=== PATIENT | female | born 1960 | race Caucasian/White ===

== ENCOUNTER 2017-10-13 16:32 | Inpatient (IN) | payer MEDICARE ==
[~2017-10-13] VITALS: Ht 154.9 cm; Wt 58.2 kg
[~2017-10-13 16:32] MED LIST: BENZ2TAB10 PO; DSS100 PO; HALO10 PO; MIRT30 PO
[2017-10-13 20:34] VITALS: BP 143/87
[2017-10-13] MEDS ORDERED: LORazepam 2 MG TABLET PO PRN (20:45)
[2017-10-13] MEDS ORDERED: ZOLPIDEM TARTRATE 10 MG TABLET PO PRN (20:45)
[2017-10-13] MEDS ORDERED: HALOPERIDOL 5 MG TABLET PO PRN (21:00)
[2017-10-13 22:33] VITALS: BP 141/93
[2017-10-13] MEDS ORDERED: INFLUENZA VIRUS VACCINE QVS 2017-18 (3YR+)/PF 60 MCG/0.5 ML SYRINGE IM ONE (22:45)
[2017-10-13] MEDS: ZOLPIDEM TARTRATE 10 MG TABLET PO PRN (23:00)
[2017-10-14 00:40] VITALS: BP 125/76
[2017-10-14 08:20] VITALS: BP 126/77
[2017-10-14] MEDS: NICOTINE 14 MG/24 HOUR PATCH TD SCH (08:22)
[2017-10-14 08:30] LABS: BASOPHILS % (AUTO) 0.7 % (0.0-2.0); EOSINOPHILS % (AUTO) 1.7 % (1.0-6.0); HEMATOCRIT 38.7 % (36-46); HEMOGLOBIN 13.3 g/dL (12.0-16.0); LYMPHOCYTES # (AUTO) 2.3 K/uL (1.0-4.8); LYMPHOCYTES % (AUTO) 22.5 % (22.0-44.0); MEAN CORPUSCULAR HEMOGLOBIN 30.7 pg (26.0-34.0); MEAN CORPUSCULAR HGB CONC 34.4 G/dL (31.0-37.0); MEAN CORPUSCULAR VOLUME 89 fL (80-100); MONOCYTES # (AUTO) 0.8 K/uL (0.1-1.0); MONOCYTES % (AUTO) 8.1 % (2.0-9.0); NEUTROPHILS # (AUTO) 6.7 K/uL (1.8-7.7); PLATELET COUNT (AUTO) 311 K/uL (150-450); RED BLOOD CELL COUNT(AUTO) 4.33 MIL/uL (4.00-5.20); RED CELL DISTRIBUTION WIDTH 13.5 % (11.5-14.5)
[2017-10-14 09:12] LABS: ALANINE AMINOTRANSFERASE 28 U/L (12-78); ALBUMIN 3.5 g/dL (3.4-5.0); ANION GAP 7 mmol/L (8-16); ASPARTATE AMINOTRANSFERASE 51 U/L (15-37); BILIRUBIN,TOTAL 0.4 mg/dL (0.1-1.0); CALCIUM, TOTAL 8.8 mg/dL (8.8-10.5); CARBON DIOXIDE 29 mmol/L (22-29); CHLORIDE 97 mmol/L (98-107); CHOL/HDL RATIO 3.1 (3.9-5.7); CREATININE 0.58 mg/dL (0.60-1.30); GLOMERULAR FILTR. RATE CALC > 60 mL/min (>60); POTASSIUM 4.7 mmol/L (3.5-5.1); SODIUM SERUM 133 mmol/L (136-145); THYROID STIMULATING HORMONE 3.94 uIU/mL (0.36-3.74); UREA NITROGEN, BLOOD 6 mg/dL (7-18)
[2017-10-14 16:04] VITALS: BP 120/83
[2017-10-14 17:28] VITALS: BP 124/78
[2017-10-14] MEDS: IBUPROFEN 400 MG TABLET PO PRN (17:28)
[2017-10-14] MEDS: DOCUSATE SODIUM 100 MG CAPSULE PO SCH (20:21)
[2017-10-14] MEDS: MIRTAZAPINE 15 MG TABLET PO SCH (20:21)
[2017-10-14] MEDS ORDERED: RisperiDONE 0.5 MG TABLET PO SCH (21:00)
[2017-10-15 06:06] VITALS: BP 121/79
[2017-10-15 08:20] VITALS: BP 105/61
[2017-10-15] MEDS: NICOTINE 14 MG/24 HOUR PATCH TD SCH (08:26)
[2017-10-15 09:25] LABS: APPEARANCE,URINE CLEAR (CLEAR); GLUCOSE, URINE (UA) NEGATIVE (NEGATIVE); KETONES,URINE NEGATIVE (NEGATIVE); LEUKOCYTE ESTERASE ,URINE TRACE (NEGATIVE); OCCULT BLOOD,URINE NEGATIVE (NEGATIVE); PROTEIN,URINE NEGATIVE (NEGATIVE)
[2017-10-15 09:29] LABS: ADD UA MICROSCOPIC YES
[2017-10-15 09:44] LABS: RBC,URINE None Seen /HPF (0-2); SQUAMOUS EPITHELIAL CELL,UR Rare /LPF (None Seen); WBC,URINE 0-2 /HPF (0-5)
[2017-10-15 16:12] VITALS: BP 117/80
[2017-10-15] MEDS: IBUPROFEN 400 MG TABLET PO PRN (16:21)
[2017-10-15] MEDS: DOCUSATE SODIUM 100 MG CAPSULE PO SCH (20:27)
[2017-10-15] MEDS: MIRTAZAPINE 15 MG TABLET PO SCH (20:27)
[2017-10-15] MEDS ORDERED: RisperiDONE 1 MG TABLET PO SCH (21:00)
[2017-10-15] MEDS: ZOLPIDEM TARTRATE 10 MG TABLET PO PRN (22:10)
[2017-10-16 02:08] VITALS: BP 109/67
[2017-10-16 08:30] LABS: ALANINE AMINOTRANSFERASE 34 U/L (12-78); ALBUMIN 3.1 g/dL (3.4-5.0); ANION GAP 8 mmol/L (8-16); ASPARTATE AMINOTRANSFERASE 36 U/L (15-37); BILIRUBIN,TOTAL 0.3 mg/dL (0.1-1.0); CALCIUM, TOTAL 8.5 mg/dL (8.8-10.5); CARBON DIOXIDE 27 mmol/L (22-29); CHLORIDE 101 mmol/L (98-107); CREATININE 0.63 mg/dL (0.60-1.30); GLOMERULAR FILTR. RATE CALC > 60 mL/min (>60); POTASSIUM 4.2 mmol/L (3.5-5.1); SODIUM SERUM 136 mmol/L (136-145); TOTAL PROTEIN, SERUM 5.8 g/dL (6.4-8.2); UREA NITROGEN, BLOOD 14 mg/dL (7-18)
[2017-10-16] MEDS: NICOTINE 14 MG/24 HOUR PATCH TD SCH (08:42)
[2017-10-16 08:43] VITALS: BP 101/60
[2017-10-16] MEDS ORDERED: MAG HYDROX/AL HYDROX/SIMETH ES 30 ML SUSPENSION UDCUP PO PRN (11:45)
[2017-10-16] MEDS ORDERED: HydrOXYzine PAMOATE 50 MG CAPSULE PO PRN (11:45)
[2017-10-16] MEDS ORDERED: LOPERAMIDE HCL 2 MG CAPSULE PO PRN (11:45)
[2017-10-16] MEDS ORDERED: PROMETHAZINE HCL 25 MG TABLET PO PRN (11:45)
[2017-10-16] MEDS ORDERED: ACETAMINOPHEN 325 MG TABLET PO PRN (11:45)
[2017-10-16] MEDS ORDERED: GuaiFENesin/D-METHORPHAN [SUGAR-FREE] 200-20MG/10 ML SYRUP UDCUP PO PRN (11:45)
[2017-10-16] MEDS ORDERED: RisperiDONE 1 MG TABLET PO PRN (14:15)
[2017-10-16 16:02] VITALS: BP 110/84
[2017-10-16] MEDS ORDERED: BENZTROPINE MESYLATE 2 MG TABLET PO SCH (17:00)
[2017-10-16] MEDS: THIAMINE HCL 100 MG TABLET PO SCH (17:31)
[2017-10-16] MEDS: DOCUSATE SODIUM 100 MG CAPSULE PO SCH (20:34)
[2017-10-16] MEDS: MIRTAZAPINE 30 MG TABLET PO SCH (20:34)
[2017-10-16] MEDS ORDERED: HALOPERIDOL 10 MG TABLET PO SCH (21:00)
[2017-10-16] MEDS ORDERED: RisperiDONE 3 MG TABLET PO SCH (21:00)
[2017-10-17 00:01] VITALS: BP 116/87
[2017-10-17] MEDS: ZOLPIDEM TARTRATE 10 MG TABLET PO PRN (00:03)
[2017-10-17 08:18] VITALS: BP 113/71
[2017-10-17] MEDS: THIAMINE HCL 100 MG TABLET PO SCH ×2 (08:33→16:34)
[2017-10-17] MEDS: FOLIC ACID 1 MG TABLET PO SCH (08:33)
[2017-10-17] MEDS: MULTIVITAMINS WITH MINERALS, THERAPEUTIC TABLET PO SCH (08:33)
[2017-10-17] MEDS: NICOTINE 14 MG/24 HOUR PATCH TD SCH (08:34)
[2017-10-17 16:08] VITALS: BP 103/63
[2017-10-17] MEDS: DOCUSATE SODIUM 100 MG CAPSULE PO SCH (20:30)
[2017-10-17] MEDS: MIRTAZAPINE 30 MG TABLET PO SCH (20:31)
[2017-10-17] MEDS ORDERED: RisperiDONE 4 MG TABLET PO SCH (21:00)
[2017-10-18 00:33] VITALS: BP 113/83
[2017-10-18] MEDS: ZOLPIDEM TARTRATE 10 MG TABLET PO PRN (00:43)
[2017-10-18 08:15] VITALS: BP 100/62
[2017-10-18] MEDS: THIAMINE HCL 100 MG TABLET PO SCH ×2 (08:18→16:22)
[2017-10-18] MEDS: FOLIC ACID 1 MG TABLET PO SCH (08:18)
[2017-10-18] MEDS: MULTIVITAMINS WITH MINERALS, THERAPEUTIC TABLET PO SCH (08:18)
[2017-10-18] MEDS: NICOTINE 14 MG/24 HOUR PATCH TD SCH (08:19)
[2017-10-18 16:04] VITALS: BP 102/62
[2017-10-18] MEDS: MIRTAZAPINE 30 MG TABLET PO SCH (20:04)
[2017-10-18] MEDS: DOCUSATE SODIUM 100 MG CAPSULE PO SCH (20:04)
[2017-10-18] MEDS: RisperiDONE 3 MG TABLET PO SCH (20:04)
[2017-10-19 03:25] VITALS: BP 117/70
[2017-10-19] MEDS: LORazepam 1 MG TABLET PO PRN (03:27)
[2017-10-19 08:27] VITALS: BP 105/67
[2017-10-19] MEDS: FOLIC ACID 1 MG TABLET PO SCH (08:40)
[2017-10-19] MEDS: MULTIVITAMINS WITH MINERALS, THERAPEUTIC TABLET PO SCH (08:40)
[2017-10-19] MEDS: NICOTINE 14 MG/24 HOUR PATCH TD SCH (08:40)
[2017-10-19] MEDS: THIAMINE HCL 100 MG TABLET PO SCH ×2 (08:40→16:37)
[2017-10-19 13:17] VITALS: BP 112/70
[2017-10-19] MEDS: ACETAMINOPHEN 325 MG TABLET PO PRN (13:17)
[2017-10-19 16:23] VITALS: BP 107/74
[2017-10-19] MEDS: DOCUSATE SODIUM 100 MG CAPSULE PO SCH (20:58)
[2017-10-19] MEDS: RisperiDONE 3 MG TABLET PO SCH (20:58)
[2017-10-19] MEDS: MIRTAZAPINE 30 MG TABLET PO SCH (20:58)
[2017-10-19] MEDS: ZOLPIDEM TARTRATE 10 MG TABLET PO PRN (22:57)
[2017-10-20 06:33] VITALS: BP 110/75
[2017-10-20 08:00] VITALS: BP 123/87
[2017-10-20] MEDS: MULTIVITAMINS WITH MINERALS, THERAPEUTIC TABLET PO SCH (08:42)
[2017-10-20] MEDS: FOLIC ACID 1 MG TABLET PO SCH (08:42)
[2017-10-20] MEDS: THIAMINE HCL 100 MG TABLET PO SCH ×2 (08:42→16:42)
[2017-10-20] MEDS: NICOTINE 14 MG/24 HOUR PATCH TD SCH (08:43)
[2017-10-20 16:04] VITALS: BP 106/71
[2017-10-20] MEDS: RisperiDONE 3 MG TABLET PO SCH (20:44)
[2017-10-20] MEDS: MIRTAZAPINE 30 MG TABLET PO SCH (20:44)
[2017-10-20] MEDS: DOCUSATE SODIUM 100 MG CAPSULE PO SCH (20:44)
[2017-10-21 06:33] VITALS: BP 101/79
[2017-10-21] MEDS: THIAMINE HCL 100 MG TABLET PO SCH ×2 (08:35→16:58)
[2017-10-21] MEDS: MULTIVITAMINS WITH MINERALS, THERAPEUTIC TABLET PO SCH (08:35)
[2017-10-21] MEDS: FOLIC ACID 1 MG TABLET PO SCH (08:35)
[2017-10-21] MEDS: NICOTINE 14 MG/24 HOUR PATCH TD SCH (08:36)
[2017-10-21 08:37] VITALS: BP 106/66
[2017-10-21 16:37] VITALS: BP 104/69
[2017-10-21] MEDS: RisperiDONE 3 MG TABLET PO SCH (21:03)
[2017-10-21] MEDS: MIRTAZAPINE 30 MG TABLET PO SCH (21:03)
[2017-10-21] MEDS: DOCUSATE SODIUM 100 MG CAPSULE PO SCH (21:03)
[2017-10-21] MEDS: ZOLPIDEM TARTRATE 10 MG TABLET PO PRN (22:34)
[2017-10-22 06:39] VITALS: BP 111/84
[2017-10-22 08:05] VITALS: BP 100/71
[2017-10-22] MEDS: THIAMINE HCL 100 MG TABLET PO SCH ×2 (08:36→17:05)
[2017-10-22] MEDS: FOLIC ACID 1 MG TABLET PO SCH (08:37)
[2017-10-22] MEDS: MULTIVITAMINS WITH MINERALS, THERAPEUTIC TABLET PO SCH (08:37)
[2017-10-22] MEDS: NICOTINE 14 MG/24 HOUR PATCH TD SCH (08:37)
[2017-10-22 16:05] VITALS: BP 114/82
[2017-10-22] MEDS: DOCUSATE SODIUM 100 MG CAPSULE PO SCH (21:03)
[2017-10-22] MEDS: MIRTAZAPINE 30 MG TABLET PO SCH (21:03)
[2017-10-22] MEDS: RisperiDONE 3 MG TABLET PO SCH (21:03)
[2017-10-22] MEDS: ZOLPIDEM TARTRATE 10 MG TABLET PO PRN (21:19)
[2017-10-23 06:16] VITALS: BP 118/76
[2017-10-23 08:22] VITALS: BP 113/75
[2017-10-23] MEDS: THIAMINE HCL 100 MG TABLET PO SCH ×2 (08:51→16:29)
[2017-10-23] MEDS: FOLIC ACID 1 MG TABLET PO SCH (08:52)
[2017-10-23] MEDS: NICOTINE 14 MG/24 HOUR PATCH TD SCH (08:52)
[2017-10-23] MEDS: MULTIVITAMINS WITH MINERALS, THERAPEUTIC TABLET PO SCH (08:52)
[2017-10-23 16:01] VITALS: BP 113/68
[2017-10-23] MEDS ORDERED: MIRT30 PO (16:16)
[2017-10-23] MEDS ORDERED: RISP3 PO (16:16)
[2017-10-23] MEDS: MAGNESIUM HYDROXIDE SUSPENSION 30 ML UDCUP PO PRN (17:50)
[2017-10-23] MEDS: DiphenhydrAMINE HCL 25 MG CAPSULE PO SCH (20:26)
[2017-10-23] MEDS: RisperiDONE 3 MG TABLET PO SCH (20:26)
[2017-10-23] MEDS: MIRTAZAPINE 30 MG TABLET PO SCH (20:27)
[2017-10-23] MEDS: DOCUSATE SODIUM 100 MG CAPSULE PO SCH (20:27)
[2017-10-23] MEDS: ZOLPIDEM TARTRATE 10 MG TABLET PO PRN (21:31)
[2017-10-24 05:53] VITALS: BP 107/68
[2017-10-24 08:25] VITALS: BP 100/60
[2017-10-24] MEDS: NICOTINE 14 MG/24 HOUR PATCH TD SCH (09:04)
[2017-10-24] MEDS: MULTIVITAMINS WITH MINERALS, THERAPEUTIC TABLET PO SCH (09:04)
[2017-10-24] MEDS: THIAMINE HCL 100 MG TABLET PO SCH ×2 (09:04→16:38)
[2017-10-24] MEDS: FOLIC ACID 1 MG TABLET PO SCH (09:04)
[2017-10-24] MEDS: MAGNESIUM HYDROXIDE SUSPENSION 30 ML UDCUP PO PRN ×2 (09:34→18:38)
[2017-10-24] MEDS ORDERED: RISP3 PO (10:24)
[2017-10-24] MEDS ORDERED: OLANZapine 5 MG RAPDIS TABLET PO PRN (13:00)
[2017-10-24 16:01] VITALS: BP 104/69
[2017-10-24] MEDS: DiphenhydrAMINE HCL 25 MG CAPSULE PO SCH (20:34)
[2017-10-24] MEDS: MIRTAZAPINE 30 MG TABLET PO SCH (20:35)
[2017-10-24] MEDS: DOCUSATE SODIUM 100 MG CAPSULE PO SCH (20:35)
[2017-10-24] MEDS: OLANZapine 5 MG RAPDIS TABLET PO SCH (20:35)
[2017-10-24] MEDS: ZOLPIDEM TARTRATE 10 MG TABLET PO PRN (21:13)
[2017-10-25] MEDS: LORazepam 1 MG TABLET PO PRN (00:57)
[2017-10-25 01:03] VITALS: BP 109/72
[2017-10-25 08:54] VITALS: BP 107/69
[2017-10-25] MEDS: FOLIC ACID 1 MG TABLET PO SCH (09:05)
[2017-10-25] MEDS: MULTIVITAMINS WITH MINERALS, THERAPEUTIC TABLET PO SCH (09:05)
[2017-10-25] MEDS: THIAMINE HCL 100 MG TABLET PO SCH ×2 (09:05→16:16)
[2017-10-25] MEDS: NICOTINE 14 MG/24 HOUR PATCH TD SCH (09:06)
[2017-10-25 16:05] VITALS: BP 102/63
[2017-10-25] MEDS: DiphenhydrAMINE HCL 25 MG CAPSULE PO SCH (20:21)
[2017-10-25] MEDS: OLANZapine 5 MG RAPDIS TABLET PO SCH (20:21)
[2017-10-25] MEDS: MIRTAZAPINE 30 MG TABLET PO SCH (20:21)
[2017-10-25] MEDS: DOCUSATE SODIUM 100 MG CAPSULE PO SCH (20:22)
[2017-10-25] MEDS: ZOLPIDEM TARTRATE 10 MG TABLET PO PRN (20:22)
[2017-10-26 06:26] VITALS: BP 108/74
[2017-10-26] MEDS: MULTIVITAMINS WITH MINERALS, THERAPEUTIC TABLET PO SCH (08:38)
[2017-10-26] MEDS: FOLIC ACID 1 MG TABLET PO SCH (08:38)
[2017-10-26] MEDS: THIAMINE HCL 100 MG TABLET PO SCH (08:38)
[2017-10-26] MEDS: NICOTINE 14 MG/24 HOUR PATCH TD SCH (08:39)
[2017-10-26 09:00] VITALS: BP 112/72
[2017-10-26 19:03] VITALS: BP 109/77
[2017-10-26] MEDS: DOCUSATE SODIUM 100 MG CAPSULE PO SCH (21:06)
[2017-10-26] MEDS: ZOLPIDEM TARTRATE 10 MG TABLET PO PRN (21:07)
[2017-10-26] MEDS: OLANZapine 5 MG RAPDIS TABLET PO SCH (21:07)
[2017-10-26] MEDS: MIRTAZAPINE 30 MG TABLET PO SCH (21:07)
[2017-10-26] MEDS: DiphenhydrAMINE HCL 25 MG CAPSULE PO SCH (21:07)
[2017-10-27] MEDS: MULTIVITAMINS WITH MINERALS, THERAPEUTIC TABLET PO SCH (08:05)
[2017-10-27] MEDS: NICOTINE 14 MG/24 HOUR PATCH TD SCH (08:05)
[2017-10-27 16:20] VITALS: BP 106/61
[2017-10-27] MEDS: MIRTAZAPINE 30 MG TABLET PO SCH (20:41)
[2017-10-27] MEDS: DiphenhydrAMINE HCL 25 MG CAPSULE PO SCH (20:41)
[2017-10-27] MEDS: DOCUSATE SODIUM 100 MG CAPSULE PO SCH (20:41)
[2017-10-27] MEDS: OLANZapine 5 MG RAPDIS TABLET PO SCH (20:42)
[2017-10-27] MEDS: ZOLPIDEM TARTRATE 10 MG TABLET PO PRN (20:46)
[2017-10-28 00:01] VITALS: BP 112/71
[2017-10-28] MEDS: LORazepam 1 MG TABLET PO PRN ×2 (01:40→17:20)
[2017-10-28 09:00] VITALS: BP 101/72
[2017-10-28] MEDS: NICOTINE 14 MG/24 HOUR PATCH TD SCH (09:49)
[2017-10-28] MEDS: MULTIVITAMINS WITH MINERALS, THERAPEUTIC TABLET PO SCH (09:49)
[2017-10-28 17:16] VITALS: BP 100/65
[2017-10-28] MEDS: DOCUSATE SODIUM 100 MG CAPSULE PO SCH (20:26)
[2017-10-28] MEDS: MIRTAZAPINE 30 MG TABLET PO SCH (20:26)
[2017-10-28] MEDS: DiphenhydrAMINE HCL 25 MG CAPSULE PO SCH (20:26)
[2017-10-28] MEDS: OLANZapine 5 MG RAPDIS TABLET PO SCH (20:27)
[2017-10-28] MEDS: ZOLPIDEM TARTRATE 10 MG TABLET PO PRN (21:45)
[2017-10-29 06:00] VITALS: BP 105/68
[2017-10-29 08:30] VITALS: BP 107/64
[2017-10-29] MEDS: MULTIVITAMINS WITH MINERALS, THERAPEUTIC TABLET PO SCH (09:35)
[2017-10-29] MEDS: NICOTINE 14 MG/24 HOUR PATCH TD SCH (09:35)
[2017-10-29] MEDS: LORazepam 1 MG TABLET PO PRN (09:39)
[2017-10-29 16:32] VITALS: BP 107/62
[2017-10-29] MEDS: OLANZapine 5 MG RAPDIS TABLET PO SCH (21:02)
[2017-10-29] MEDS: MIRTAZAPINE 30 MG TABLET PO SCH (21:02)
[2017-10-29] MEDS: DOCUSATE SODIUM 100 MG CAPSULE PO SCH (21:02)
[2017-10-29] MEDS: ZOLPIDEM TARTRATE 10 MG TABLET PO PRN (21:02)
[2017-10-29] MEDS: DiphenhydrAMINE HCL 25 MG CAPSULE PO SCH (21:02)
[2017-10-30 06:34] VITALS: BP 108/65
[2017-10-30 08:40] VITALS: BP 110/67
[2017-10-30] MEDS: ACETAMINOPHEN 325 MG TABLET PO PRN (09:10)
[2017-10-30] MEDS: MULTIVITAMINS WITH MINERALS, THERAPEUTIC TABLET PO SCH (09:10)
[2017-10-30] MEDS: NICOTINE 14 MG/24 HOUR PATCH TD SCH (09:10)
[2017-10-30] MEDS: LORazepam 1 MG TABLET PO PRN ×2 (09:10→16:36)
[2017-10-30] MEDS: MAGNESIUM HYDROXIDE SUSPENSION 30 ML UDCUP PO PRN (16:50)
[2017-10-30 16:51] VITALS: BP 106/65
[2017-10-30] MEDS: DiphenhydrAMINE HCL 25 MG CAPSULE PO SCH (21:00)
[2017-10-30] MEDS: MIRTAZAPINE 30 MG TABLET PO SCH (21:00)
[2017-10-30] MEDS: OLANZapine 5 MG RAPDIS TABLET PO SCH (21:00)
[2017-10-30] MEDS: DOCUSATE SODIUM 100 MG CAPSULE PO SCH (21:00)
[2017-10-30] MEDS: ZOLPIDEM TARTRATE 10 MG TABLET PO PRN (22:30)
[2017-10-31] MEDS: NICOTINE 14 MG/24 HOUR PATCH TD SCH (08:22)
[2017-10-31] MEDS: MULTIVITAMINS WITH MINERALS, THERAPEUTIC TABLET PO SCH (08:22)
[2017-10-31 08:54] VITALS: BP 105/86
[2017-10-31] MEDS: MAGNESIUM HYDROXIDE SUSPENSION 30 ML UDCUP PO PRN ×2 (10:48→17:23)
[2017-10-31 16:35] VITALS: BP 113/74
[2017-10-31] MEDS ORDERED: OLAN10TA22 PO (16:53)
[2017-10-31] MEDS: LORazepam 1 MG TABLET PO PRN (17:23)
[2017-10-31] MEDS: ZOLPIDEM TARTRATE 10 MG TABLET PO PRN (20:51)
[2017-10-31] MEDS: DOCUSATE SODIUM 100 MG CAPSULE PO SCH (20:51)
[2017-10-31] MEDS: DiphenhydrAMINE HCL 25 MG CAPSULE PO SCH (20:51)
[2017-10-31] MEDS: MIRTAZAPINE 30 MG TABLET PO SCH (20:51)
[2017-10-31] MEDS ORDERED: OLANZapine 10 MG RAPDIS TABLET PO SCH (21:00)
[2017-11-01 02:42] VITALS: BP 127/63
[2017-11-01] MEDS: LORazepam 1 MG TABLET PO PRN (04:58)
[2017-11-01] MEDS: NICOTINE 14 MG/24 HOUR PATCH TD SCH (08:25)
[2017-11-01] MEDS: MULTIVITAMINS WITH MINERALS, THERAPEUTIC TABLET PO SCH (08:25)
[2017-11-01] MEDS ORDERED: CIPROFLOXACIN HCL 0.3% 2.5 ML OPHTHALMIC SOLUTION OD SCH (09:00)
[2017-11-01] MEDS ORDERED: DIPH25 PO (09:09)
[2017-11-01 09:10] VITALS: BP 93/60
[2017-11-01] MEDS ORDERED: CILO2.5OS OD (09:10)
[2017-11-01] MEDS: MAGNESIUM HYDROXIDE SUSPENSION 30 ML UDCUP PO PRN (12:12)
== END 2017-11-01 13:05 | disposition home or self-care (01) | DRG 885 ==
LOC: B2X 21:23 → B3A 10-25 01:20
PROVIDERS: ADMIT Psychiatry & Neurology Psychiatry; ATTEND Psychiatry & Neurology Psychiatry
DX: F25.0 Schizoaffective disorder, bipolar type (principal); E87.1 Hypo-osmolality and hyponatremia; R45.851 Suicidal ideations; F22 Delusional disorders; J44.9 Chronic obstructive pulmonary disease, unspecified; K59.09 Other constipation; E03.9 Hypothyroidism, unspecified; G47.00 Insomnia, unspecified; F39 Unspecified mood [affective] disorder; R74.0 Nonspecific elevation of levels of transaminase and lactic acid dehydrogenase [LDH]; Z56.0 Unemployment, unspecified; Z79.899 Other long term (current) drug therapy; Z91.19 Patient's noncompliance with other medical treatment and regimen; Z28.21 Immunization not carried out because of patient refusal
CPT/HCPCS: 80173; 80307; 84439; 84443; 87081

== ENCOUNTER 2017-12-14 21:26 | Inpatient (IN) | payer MEDICARE, OTHER ==
[~2017-12-14] VITALS: Ht 157.5 cm; Wt 55.8 kg
[~2017-12-14 21:26] MED LIST changes: -BENZ2TAB10 PO; +CILO2.5OS OD; +DIPH25 PO; -HALO10 PO; +OLAN10TA22 PO
[2017-12-14 22:50] LABS: BASOPHILS # (AUTO) 0.02 K/uL (0.00-0.20); BASOPHILS % (AUTO) 0.2 % (0.0-2.0); EOSINOPHILS # (AUTO) 0.05 K/uL (0.00-0.70); EOSINOPHILS % (AUTO) 0.32 % (1.0-6.0); HEMATOCRIT 45.3 % (36-46); HEMOGLOBIN 15.2 g/dL (12.0-16.0); LYMPHOCYTES # (AUTO) 3.1 K/uL (1.0-4.8); MEAN CORPUSCULAR HEMOGLOBIN 31.1 pg (26.0-34.0); MEAN CORPUSCULAR HGB CONC 33.6 G/dL (31.0-37.0); MEAN CORPUSCULAR VOLUME 92 fL (80-100); MONOCYTES # (AUTO) 0.9 K/uL (0.1-1.0); MONOCYTES % (AUTO) 5.4 % (2.0-9.0); NEUTROPHILS # (AUTO) 12.2 K/uL (1.8-7.7); NEUTROPHILS % (AUTO) 75.1 % (40.0-70.0); PLATELET COUNT (AUTO) 328 K/uL (150-450); RED CELL DISTRIBUTION WIDTH 13.7 % (11.5-14.5)
[2017-12-14 23:00] LABS: ANION GAP 8 mmol/L (8-16); CALCIUM, TOTAL 8.7 mg/dL (8.8-10.5); CARBON DIOXIDE 28 mmol/L (22-29); CHLORIDE 91 mmol/L (98-107); CREATININE 0.76 mg/dL (0.60-1.30); GLOMERULAR FILTR. RATE CALC > 60 mL/min (>60); GLUCOSE,RANDOM 139 mg/dL (70-110); POTASSIUM 3.8 mmol/L (3.5-5.1); SODIUM SERUM 127 mmol/L (136-145); UREA NITROGEN, BLOOD 4 mg/dL (7-18)
[2017-12-14 23:10] LABS: ALANINE AMINOTRANSFERASE 18 U/L (12-78); ALBUMIN 4.1 g/dL (3.4-5.0); ALKALINE PHOSPHATASE 82 U/L (46-116); ASPARTATE AMINOTRANSFERASE 14 U/L (15-37); BILIRUBIN,TOTAL 0.3 mg/dL (0.1-1.0); TOTAL PROTEIN, SERUM 7.5 g/dL (6.4-8.2)
[2017-12-14] MEDS ORDERED: OLANZapine 5 MG RAPDIS TABLET PO PRN (23:30)
[2017-12-14 23:48] LABS: CHOL/HDL RATIO 2.8 (3.9-5.7); CHOLESTEROL 176 mg/dL (131-200); HDL CHOLESTEROL 64 mg/dL (40-60); LDL CHOL (CALC.) 90 mg/dL (0-130); THYROID STIMULATING HORMONE 1.52 uIU/mL (0.36-3.74); TRIGLYCERIDES 111 mg/dL (15-150)
[2017-12-15] MEDS ORDERED: SODIUM CHLORIDE 1 GM TABLET PO ONE (01:30)
[2017-12-15] MEDS: ZOLPIDEM TARTRATE 10 MG TABLET PO PRN (02:43)
[2017-12-15 02:48] VITALS: BP 113/69
[2017-12-15] MEDS ORDERED: PNEUMOCOCCAL VACCINE POLYVALENT 0.5 ML VIAL [PPSV23] IM ONE (05:00)
[2017-12-15] MEDS ORDERED: INFLUENZA VIRUS VACCINE QVS 2017-18 (3YR+)/PF 60 MCG/0.5 ML SYRINGE IM ONE (05:00)
[2017-12-15] MEDS ORDERED: GuaiFENesin/D-METHORPHAN [SUGAR-FREE] 200-20MG/10 ML SYRUP UDCUP PO PRN (08:00)
[2017-12-15 08:25] LABS: HEMOGLOBIN A1C 5.7 % (4.5-6.2)
[2017-12-15 08:30] VITALS: BP 112/73
[2017-12-15 08:30] LABS: BASOPHILS % (AUTO) 0.5 % (0.0-2.0); EOSINOPHILS % (AUTO) 1.2 % (1.0-6.0); HEMATOCRIT 42.8 % (36-46); HEMOGLOBIN 14.5 g/dL (12.0-16.0); LYMPHOCYTES # (AUTO) 3.2 K/uL (1.0-4.8); LYMPHOCYTES % (AUTO) 28.3 % (22.0-44.0); MEAN CORPUSCULAR HEMOGLOBIN 30.9 pg (26.0-34.0); MEAN CORPUSCULAR HGB CONC 33.9 G/dL (31.0-37.0); MEAN CORPUSCULAR VOLUME 91 fL (80-100); MONOCYTES # (AUTO) 0.9 K/uL (0.1-1.0); MONOCYTES % (AUTO) 7.9 % (2.0-9.0); NEUTROPHILS % (AUTO) 62.1 % (40.0-70.0); PLATELET COUNT (AUTO) 291 K/uL (150-450); RED BLOOD CELL COUNT(AUTO) 4.69 MIL/uL (4.00-5.20); RED CELL DISTRIBUTION WIDTH 13.4 % (11.5-14.5)
[2017-12-15] MEDS: SODIUM CHLORIDE 1 GM TABLET PO SCH ×2 (09:05→17:06)
[2017-12-15 09:44] LABS: ALANINE AMINOTRANSFERASE 16 U/L (12-78); ALBUMIN 3.6 g/dL (3.4-5.0); ALKALINE PHOSPHATASE 70 U/L (46-116); ANION GAP 7 mmol/L (8-16); ASPARTATE AMINOTRANSFERASE 10 U/L (15-37); BILIRUBIN,TOTAL 0.3 mg/dL (0.1-1.0); CALCIUM, TOTAL 8.6 mg/dL (8.8-10.5); CARBON DIOXIDE 28 mmol/L (22-29); CHLORIDE 99 mmol/L (98-107); CREATININE 0.61 mg/dL (0.60-1.30); GLOMERULAR FILTR. RATE CALC > 60 mL/min (>60); GLUCOSE,RANDOM 80 mg/dL (70-110); POTASSIUM 3.3 mmol/L (3.5-5.1); SODIUM SERUM 134 mmol/L (136-145); TOTAL PROTEIN, SERUM 6.2 g/dL (6.4-8.2); UREA NITROGEN, BLOOD 5 mg/dL (7-18)
[2017-12-15] MEDS ORDERED: POTASSIUM CHLORIDE 10% 40 MEQ/30 ML LIQUID UDCUP PO ONE (11:15)
[2017-12-15] MEDS ORDERED: POTASSIUM CHLORIDE 20 MEQ ER TABLET PO ONE (12:00)
[2017-12-15 16:26] VITALS: BP 118/65
[2017-12-15] MEDS: LORazepam 2 MG TABLET PO PRN (17:08)
[2017-12-15] MEDS: MIRTAZAPINE 30 MG TABLET PO SCH (20:15)
[2017-12-15] MEDS: OLANZapine 10 MG TABLET PO SCH (20:15)
[2017-12-16 06:12] VITALS: BP 108/75
[2017-12-16] MEDS: SODIUM CHLORIDE 1 GM TABLET PO SCH ×2 (08:29→16:31)
[2017-12-16 08:30] VITALS: BP 135/60
[2017-12-16 16:31] VITALS: BP 122/86
[2017-12-16] MEDS: MIRTAZAPINE 30 MG TABLET PO SCH (20:36)
[2017-12-16] MEDS: OLANZapine 10 MG TABLET PO SCH (20:37)
[2017-12-16] MEDS: ZOLPIDEM TARTRATE 10 MG TABLET PO PRN (21:01)
[2017-12-17 00:10] VITALS: BP 125/81
[2017-12-17] MEDS: LORazepam 2 MG TABLET PO PRN (00:25)
[2017-12-17 08:09] VITALS: BP 120/63
[2017-12-17] MEDS: SODIUM CHLORIDE 1 GM TABLET PO SCH (08:30)
[2017-12-17 16:06] VITALS: BP 112/62
[2017-12-17] MEDS: MIRTAZAPINE 30 MG TABLET PO SCH (20:32)
[2017-12-17] MEDS: OLANZapine 10 MG TABLET PO SCH (20:33)
[2017-12-17] MEDS: ZOLPIDEM TARTRATE 10 MG TABLET PO PRN (22:12)
[2017-12-18 06:53] VITALS: BP 101/65
[2017-12-18 08:19] LABS: BASOPHILS # (AUTO) 0.04 K/uL (0.00-0.20); BASOPHILS % (AUTO) 0.4 % (0.0-2.0); EOSINOPHILS # (AUTO) 0.12 K/uL (0.00-0.70); HEMATOCRIT 40.7 % (36-46); HEMOGLOBIN 13.6 g/dL (12.0-16.0); LYMPHOCYTES # (AUTO) 2.6 K/uL (1.0-4.8); MEAN CORPUSCULAR HGB CONC 33.3 G/dL (31.0-37.0); MEAN CORPUSCULAR VOLUME 93 fL (80-100); MONOCYTES # (AUTO) 0.6 K/uL (0.1-1.0); MONOCYTES % (AUTO) 7.4 % (2.0-9.0); NEUTROPHILS # (AUTO) 4.7 K/uL (1.8-7.7); NEUTROPHILS % (AUTO) 58.6 % (40.0-70.0); PLATELET COUNT (AUTO) 236 K/uL (150-450); RED BLOOD CELL COUNT(AUTO) 4.37 MIL/uL (4.00-5.20); RED CELL DISTRIBUTION WIDTH 13.6 % (11.5-14.5)
[2017-12-18 08:26] LABS: ALANINE AMINOTRANSFERASE 15 U/L (12-78); ALBUMIN 3.2 g/dL (3.4-5.0); ALKALINE PHOSPHATASE 66 U/L (46-116); ANION GAP 7 mmol/L (8-16); ASPARTATE AMINOTRANSFERASE 10 U/L (15-37); BILIRUBIN,TOTAL 0.2 mg/dL (0.1-1.0); CALCIUM, TOTAL 8.5 mg/dL (8.8-10.5); CARBON DIOXIDE 32 mmol/L (22-29); CHLORIDE 102 mmol/L (98-107); CREATININE 0.63 mg/dL (0.60-1.30); GLOMERULAR FILTR. RATE CALC > 60 mL/min (>60); GLUCOSE,RANDOM 89 mg/dL (70-110); POTASSIUM 4.1 mmol/L (3.5-5.1); SODIUM SERUM 141 mmol/L (136-145); UREA NITROGEN, BLOOD 10 mg/dL (7-18)
[2017-12-18 08:54] VITALS: BP 122/73
[2017-12-18] MEDS ORDERED: MAG HYDROX/AL HYDROX/SIMETH ES 30 ML SUSPENSION UDCUP PO PRN (13:45)
[2017-12-18] MEDS ORDERED: HydrOXYzine PAMOATE 50 MG CAPSULE PO PRN (13:45)
[2017-12-18] MEDS ORDERED: GuaiFENesin/D-METHORPHAN [SUGAR-FREE] 200-20MG/10 ML SYRUP UDCUP PO PRN (13:45)
[2017-12-18] MEDS ORDERED: PROMETHAZINE HCL 25 MG TABLET PO PRN (13:45)
[2017-12-18] MEDS ORDERED: LOPERAMIDE HCL 2 MG CAPSULE PO PRN (13:45)
[2017-12-18 16:18] VITALS: BP 119/69
[2017-12-18] MEDS: THIAMINE HCL 100 MG TABLET PO SCH (16:38)
[2017-12-18] MEDS: OLANZapine 10 MG TABLET PO SCH (20:43)
[2017-12-18] MEDS: MIRTAZAPINE 15 MG TABLET PO SCH (20:43)
[2017-12-19 06:37] VITALS: BP 101/64
[2017-12-19] MEDS: MULTIVITAMINS WITH MINERALS, THERAPEUTIC TABLET PO SCH (08:53)
[2017-12-19] MEDS: FOLIC ACID 1 MG TABLET PO SCH (08:53)
[2017-12-19] MEDS: THIAMINE HCL 100 MG TABLET PO SCH ×2 (08:53→16:38)
[2017-12-19 08:54] VITALS: BP 120/75
[2017-12-19 16:15] VITALS: BP 119/71
[2017-12-19] MEDS: MIRTAZAPINE 15 MG TABLET PO SCH (20:30)
[2017-12-19] MEDS: ZOLPIDEM TARTRATE 10 MG TABLET PO PRN (20:59)
[2017-12-19] MEDS ORDERED: OLANZapine 10 MG TABLET PO SCH (21:00)
[2017-12-20 06:26] VITALS: BP 101/78
[2017-12-20 08:39] VITALS: BP 108/65
[2017-12-20] MEDS: THIAMINE HCL 100 MG TABLET PO SCH ×2 (09:18→16:34)
[2017-12-20] MEDS: MULTIVITAMINS WITH MINERALS, THERAPEUTIC TABLET PO SCH (09:18)
[2017-12-20] MEDS: FOLIC ACID 1 MG TABLET PO SCH (09:18)
[2017-12-20] MEDS ORDERED: HALOPERIDOL 5 MG TABLET PO PRN (15:30)
[2017-12-20 16:09] VITALS: BP 113/61
[2017-12-20] MEDS: MIRTAZAPINE 15 MG TABLET PO SCH (20:35)
[2017-12-20] MEDS: DIVALPROEX SODIUM 500 MG ER TABLET PO SCH (20:35)
[2017-12-20] MEDS ORDERED: HALOPERIDOL 10 MG TABLET PO SCH (21:00)
[2017-12-20] MEDS: ZOLPIDEM TARTRATE 10 MG TABLET PO PRN (22:34)
[2017-12-21 06:44] VITALS: BP 103/70
[2017-12-21 08:44] VITALS: BP 107/63
[2017-12-21] MEDS: FOLIC ACID 1 MG TABLET PO SCH (08:50)
[2017-12-21] MEDS: MULTIVITAMINS WITH MINERALS, THERAPEUTIC TABLET PO SCH (08:50)
[2017-12-21] MEDS: THIAMINE HCL 100 MG TABLET PO SCH ×2 (08:50→16:39)
[2017-12-21 16:32] VITALS: BP 111/72
[2017-12-21] MEDS: DIVALPROEX SODIUM 500 MG ER TABLET PO SCH (20:40)
[2017-12-21] MEDS: MIRTAZAPINE 15 MG TABLET PO SCH (20:41)
[2017-12-21] MEDS: HALOPERIDOL 10 MG TABLET PO SCH (20:41)
[2017-12-21] MEDS: ZOLPIDEM TARTRATE 10 MG TABLET PO PRN (21:55)
[2017-12-22 00:10] VITALS: BP 108/73
[2017-12-22 08:53] VITALS: BP 107/81
[2017-12-22] MEDS: THIAMINE HCL 100 MG TABLET PO SCH ×2 (09:02→16:43)
[2017-12-22] MEDS: MULTIVITAMINS WITH MINERALS, THERAPEUTIC TABLET PO SCH (09:02)
[2017-12-22] MEDS: FOLIC ACID 1 MG TABLET PO SCH (09:02)
[2017-12-22 16:03] VITALS: BP 105/57
[2017-12-22 20:31] VITALS: BP 112/62
[2017-12-22] MEDS: IBUPROFEN 400 MG TABLET PO PRN (20:35)
[2017-12-22] MEDS: MIRTAZAPINE 15 MG TABLET PO SCH (20:39)
[2017-12-22] MEDS: DIVALPROEX SODIUM 500 MG ER TABLET PO SCH (20:39)
[2017-12-22] MEDS: HALOPERIDOL 10 MG TABLET PO SCH (20:40)
[2017-12-22] MEDS: ZOLPIDEM TARTRATE 10 MG TABLET PO PRN (21:51)
[2017-12-23 06:46] VITALS: BP 102/71
[2017-12-23] MEDS: THIAMINE HCL 100 MG TABLET PO SCH ×2 (08:38→16:14)
[2017-12-23] MEDS: MULTIVITAMINS WITH MINERALS, THERAPEUTIC TABLET PO SCH (08:38)
[2017-12-23] MEDS: FOLIC ACID 1 MG TABLET PO SCH (08:38)
[2017-12-23 08:45] VITALS: BP 104/68
[2017-12-23 16:10] VITALS: BP 123/64
[2017-12-23 19:03] VITALS: BP 112/72
[2017-12-23] MEDS: IBUPROFEN 400 MG TABLET PO PRN (19:03)
[2017-12-23] MEDS: DIVALPROEX SODIUM 500 MG ER TABLET PO SCH (20:00)
[2017-12-23] MEDS: MIRTAZAPINE 15 MG TABLET PO SCH (20:01)
[2017-12-23] MEDS: HALOPERIDOL 10 MG TABLET PO SCH (20:01)
[2017-12-23] MEDS: ZOLPIDEM TARTRATE 10 MG TABLET PO PRN (20:30)
[2017-12-24] VITALS: BP 112/85
[2017-12-24] MEDS: MULTIVITAMINS WITH MINERALS, THERAPEUTIC TABLET PO SCH (08:27)
[2017-12-24] MEDS: FOLIC ACID 1 MG TABLET PO SCH (08:27)
[2017-12-24] MEDS: THIAMINE HCL 100 MG TABLET PO SCH ×2 (08:27→17:23)
[2017-12-24 08:29] VITALS: BP 104/77
[2017-12-24 16:16] VITALS: BP 105/71
[2017-12-24] MEDS: DIVALPROEX SODIUM 500 MG ER TABLET PO SCH (20:15)
[2017-12-24] MEDS: MIRTAZAPINE 15 MG TABLET PO SCH (20:15)
[2017-12-24] MEDS: HALOPERIDOL 10 MG TABLET PO SCH (20:16)
[2017-12-24] MEDS: ZOLPIDEM TARTRATE 10 MG TABLET PO PRN (21:20)
[2017-12-25 01:16] VITALS: BP 109/78
[2017-12-25 07:56] VITALS: BP 111/73
[2017-12-25 08:11] VITALS: BP 111/73
[2017-12-25] MEDS: THIAMINE HCL 100 MG TABLET PO SCH ×2 (08:26→16:44)
[2017-12-25] MEDS: FOLIC ACID 1 MG TABLET PO SCH (08:26)
[2017-12-25] MEDS: MULTIVITAMINS WITH MINERALS, THERAPEUTIC TABLET PO SCH (08:26)
[2017-12-25] MEDS: MAGNESIUM HYDROXIDE SUSPENSION 30 ML UDCUP PO PRN ×2 (13:17→19:25)
[2017-12-25] MEDS ORDERED: MIRT15 PO (13:38)
[2017-12-25] MEDS ORDERED: HALO10 PO (13:38)
[2017-12-25] MEDS ORDERED: DIVA500T52 PO (13:38)
[2017-12-25 16:12] VITALS: BP 110/66
[2017-12-25] MEDS: ACETAMINOPHEN 325 MG TABLET PO PRN (17:23)
[2017-12-25] MEDS: DIVALPROEX SODIUM 500 MG ER TABLET PO SCH (20:31)
[2017-12-25] MEDS: HALOPERIDOL 10 MG TABLET PO SCH (20:31)
[2017-12-25] MEDS: MIRTAZAPINE 15 MG TABLET PO SCH (20:31)
[2017-12-25] MEDS: ZOLPIDEM TARTRATE 10 MG TABLET PO PRN (21:35)
[2017-12-26 00:38] VITALS: BP 116/76
[2017-12-26 00:58] VITALS: BP 116/76
[2017-12-26] MEDS: MULTIVITAMINS WITH MINERALS, THERAPEUTIC TABLET PO SCH (08:02)
[2017-12-26] MEDS: THIAMINE HCL 100 MG TABLET PO SCH (08:02)
[2017-12-26] MEDS: FOLIC ACID 1 MG TABLET PO SCH (08:02)
[2017-12-26 08:49] VITALS: BP 116/73
[2017-12-26 09:06] VITALS: BP 116/73
[2017-12-26] MEDS: ACETAMINOPHEN 325 MG TABLET PO PRN (13:00)
== END 2017-12-26 14:25 | disposition home or self-care (01) | DRG 885 ==
LOC: EMS 21:32 → B2X 12-15 00:58
PROVIDERS: ADMIT Psychiatry & Neurology Psychiatry; ATTEND Psychiatry & Neurology Psychiatry
DX: F25.9 Schizoaffective disorder, unspecified (principal); E87.1 Hypo-osmolality and hyponatremia; R45.851 Suicidal ideations; E87.6 Hypokalemia; F17.210 Nicotine dependence, cigarettes, uncomplicated; D72.829 Elevated white blood cell count, unspecified; Z79.899 Other long term (current) drug therapy
CPT/HCPCS: 83036; 84132; 84443; 99285; G0480

== ENCOUNTER 2018-10-06 16:40 | Inpatient (IN) | payer MEDICARE, OTHER ==
[~2018-10-06] VITALS: Ht 157.5 cm; Wt 57.3 kg
[~2018-10-06 16:40] MED LIST changes: -CILO2.5OS OD; -DIPH25 PO; +DIVA500T52 PO; -DSS100 PO; +HALO10 PO; +MIRT15 PO; -MIRT30 PO; -OLAN10TA22 PO
[2018-10-06] MEDS ORDERED: QUEtiapine FUMARATE 100 MG TABLET PO PRN (17:45)
[2018-10-06] MEDS ORDERED: PNEUMOCOCCAL VACCINE POLYVALENT 0.5 ML VIAL [PPSV23] IM ONE (18:00)
[2018-10-06 19:19] VITALS: BP 134/92
[2018-10-06] MEDS ORDERED: LOPERAMIDE HCL 2 MG CAPSULE PO PRN (20:15)
[2018-10-06] MEDS ORDERED: DOCUSATE SODIUM 100 MG CAPSULE PO PRN (20:15)
[2018-10-06] MEDS ORDERED: ONDANSETRON HCL 4 MG TABLET PO PRN (20:15)
[2018-10-06] MEDS ORDERED: PETROLATUM,WHITE 71 GM JELLY TP PRN (20:15)
[2018-10-06] MEDS ORDERED: CloNIDine HCL 0.1 MG TABLET PO PRN (20:15)
[2018-10-06] MEDS ORDERED: ALBUTEROL SULFATE HFA 90 MCG/PUFF 8 GM INHALER IH PRN (20:15)
[2018-10-06] MEDS ORDERED: MAG HYDROX/AL HYDROX/SIMETH ES 30 ML SUSPENSION UDCUP PO PRN (20:15)
[2018-10-06] MEDS ORDERED: IBUPROFEN 400 MG TABLET PO PRN (20:15)
[2018-10-06] MEDS ORDERED: ACETAMINOPHEN 325 MG TABLET PO PRN (20:15)
[2018-10-06] MEDS: HALOPERIDOL 5 MG TABLET PO SCH (20:42)
[2018-10-06] MEDS: DIVALPROEX SODIUM 500 MG ER TABLET PO SCH (20:42)
[2018-10-06] MEDS: MIRTAZAPINE 15 MG TABLET PO SCH (20:42)
[2018-10-07 05:19] VITALS: BP 124/89
[2018-10-07 08:13] VITALS: BP 122/86
[2018-10-07 08:36] LABS: BASOPHILS % (AUTO) 0.7 % (0.0-2.0); EOSINOPHILS % (AUTO) 0.5 % (1.0-6.0); HEMATOCRIT 43.5 % (36-46); HEMOGLOBIN 15.1 g/dL (12.0-16.0); LYMPHOCYTES # (AUTO) 2.2 K/uL (1.0-4.8); LYMPHOCYTES % (AUTO) 25.8 % (22.0-44.0); MEAN CORPUSCULAR HGB CONC 34.6 G/dL (31.0-37.0); MEAN CORPUSCULAR VOLUME 92 fL (80-100); MONOCYTES # (AUTO) 0.5 K/uL (0.1-1.0); MONOCYTES % (AUTO) 5.4 % (2.0-9.0); NEUTROPHILS # (AUTO) 5.9 K/uL (1.8-7.7); NEUTROPHILS % (AUTO) 67.6 % (40.0-70.0); PLATELET COUNT (AUTO) 317 K/uL (150-450); RED BLOOD CELL COUNT(AUTO) 4.71 MIL/uL (4.00-5.20); RED CELL DISTRIBUTION WIDTH 13.3 % (11.5-14.5)
[2018-10-07 08:37] LABS: HEMOGLOBIN A1C 5.8 % (4.5-6.2)
[2018-10-07 08:47] LABS: ALANINE AMINOTRANSFERASE 15 U/L (12-78); ALBUMIN 3.7 g/dL (3.4-5.0); ALKALINE PHOSPHATASE 72 U/L (46-116); ANION GAP 6 mmol/L (8-16); ASPARTATE AMINOTRANSFERASE 11 U/L (15-37); BILIRUBIN,TOTAL 0.5 mg/dL (0.1-1.0); CALCIUM, TOTAL 8.8 mg/dL (8.8-10.5); CARBON DIOXIDE 31 mmol/L (22-29); CHLORIDE 103 mmol/L (98-107); CHOL/HDL RATIO 2.7 (3.9-5.7); CHOLESTEROL 159 mg/dL (131-200); CREATININE 0.87 mg/dL (0.60-1.30); FREE T4 (FREE THYROXINE) 1.07 ng/dL (0.76-1.46); GLOMERULAR FILTR. RATE CALC > 60 mL/min (>60); GLUCOSE,RANDOM 139 mg/dL (70-110); HDL CHOLESTEROL 58 mg/dL (40-60); LDL CHOL (CALC.) 86 mg/dL (0-130); POTASSIUM 3.7 mmol/L (3.5-5.1); SODIUM SERUM 140 mmol/L (136-145); THYROID STIMULATING HORMONE 1.94 uIU/mL (0.36-3.74); TOTAL PROTEIN, SERUM 6.8 g/dL (6.4-8.2); TRIGLYCERIDES 75 mg/dL (15-150); UREA NITROGEN, BLOOD 5 mg/dL (7-18)
[2018-10-07] MEDS: NICOTINE 14 MG/24 HOUR PATCH TD SCH (09:00)
[2018-10-07] MEDS: LORazepam 2 MG TABLET PO PRN ×2 (11:49→17:29)
[2018-10-07 16:00] VITALS: BP 123/82
[2018-10-07] MEDS: GuaiFENesin/D-METHORPHAN [SUGAR-FREE] 200-20MG/10 ML SYRUP UDCUP PO PRN (18:02)
[2018-10-07] MEDS: MIRTAZAPINE 15 MG TABLET PO SCH (20:28)
[2018-10-07] MEDS: HALOPERIDOL 5 MG TABLET PO SCH (20:28)
[2018-10-07] MEDS: DIVALPROEX SODIUM 500 MG ER TABLET PO SCH (20:28)
[2018-10-08 06:07] VITALS: BP 130/72
[2018-10-08] MEDS: NICOTINE 14 MG/24 HOUR PATCH TD SCH (09:00)
[2018-10-08] MEDS: GuaiFENesin/D-METHORPHAN [SUGAR-FREE] 200-20MG/10 ML SYRUP UDCUP PO PRN ×2 (09:28→16:22)
[2018-10-08] MEDS ORDERED: HydrOXYzine PAMOATE 50 MG CAPSULE PO PRN (12:00)
[2018-10-08] MEDS: LORazepam 2 MG TABLET PO PRN (13:01)
[2018-10-08] MEDS ORDERED: HALOPERIDOL 5 MG TABLET PO PRN (13:30)
[2018-10-08] MEDS: THIAMINE HCL 100 MG TABLET PO SCH (16:34)
[2018-10-08] MEDS: TRIHEXYPHENIDYL HCL 2 MG TABLET PO SCH (16:34)
[2018-10-08 16:36] VITALS: BP 124/79
[2018-10-08] MEDS: MIRTAZAPINE 15 MG TABLET PO SCH (20:33)
[2018-10-08] MEDS: DIVALPROEX SODIUM 500 MG ER TABLET PO SCH (20:33)
[2018-10-08] MEDS ORDERED: HALOPERIDOL 10 MG TABLET PO SCH (21:00)
[2018-10-08] MEDS ORDERED: DIVALPROEX SODIUM 500 MG ER TABLET PO SCH (21:00)
[2018-10-08] MEDS: ZOLPIDEM TARTRATE 10 MG TABLET PO PRN (22:51)
[2018-10-09 06:59] VITALS: BP 121/68
[2018-10-09] MEDS: FOLIC ACID 1 MG TABLET PO SCH (08:09)
[2018-10-09] MEDS: THIAMINE HCL 100 MG TABLET PO SCH ×2 (08:09→16:36)
[2018-10-09] MEDS: MULTIVITAMINS WITH MINERALS, THERAPEUTIC TABLET PO SCH (08:10)
[2018-10-09] MEDS: GuaiFENesin/D-METHORPHAN [SUGAR-FREE] 200-20MG/10 ML SYRUP UDCUP PO PRN ×2 (08:10→17:11)
[2018-10-09] MEDS: TRIHEXYPHENIDYL HCL 2 MG TABLET PO SCH ×3 (08:10→16:36)
[2018-10-09] MEDS: NICOTINE 14 MG/24 HOUR PATCH TD SCH (08:11)
[2018-10-09 08:38] VITALS: BP 118/76
[2018-10-09] MEDS: LORazepam 2 MG TABLET PO PRN (12:08)
[2018-10-09 16:00] VITALS: BP 105/63
[2018-10-09] MEDS: HALOPERIDOL 10 MG TABLET PO SCH (20:41)
[2018-10-09] MEDS: DIVALPROEX SODIUM 500 MG ER TABLET PO SCH (20:41)
[2018-10-09] MEDS: MIRTAZAPINE 15 MG TABLET PO SCH (20:41)
[2018-10-09] MEDS: ZOLPIDEM TARTRATE 10 MG TABLET PO PRN (21:27)
[2018-10-10 06:36] VITALS: BP 110/68
[2018-10-10 08:24] VITALS: BP 110/64
[2018-10-10] MEDS: LORazepam 2 MG TABLET PO PRN (08:45)
[2018-10-10] MEDS: THIAMINE HCL 100 MG TABLET PO SCH ×2 (08:45→16:48)
[2018-10-10] MEDS: MULTIVITAMINS WITH MINERALS, THERAPEUTIC TABLET PO SCH (08:45)
[2018-10-10] MEDS: TRIHEXYPHENIDYL HCL 2 MG TABLET PO SCH ×3 (08:45→16:48)
[2018-10-10] MEDS: FOLIC ACID 1 MG TABLET PO SCH (08:45)
[2018-10-10] MEDS: NICOTINE 14 MG/24 HOUR PATCH TD SCH (09:00)
[2018-10-10] MEDS: GuaiFENesin/D-METHORPHAN [SUGAR-FREE] 200-20MG/10 ML SYRUP UDCUP PO PRN (15:54)
[2018-10-10 16:11] VITALS: BP 112/78
[2018-10-10] MEDS: MIRTAZAPINE 15 MG TABLET PO SCH (20:08)
[2018-10-10] MEDS: DIVALPROEX SODIUM 500 MG ER TABLET PO SCH (20:08)
[2018-10-10] MEDS: HALOPERIDOL 10 MG TABLET PO SCH (20:08)
[2018-10-11 06:23] VITALS: BP 105/66
[2018-10-11 08:08] VITALS: BP 138/63
[2018-10-11] MEDS: THIAMINE HCL 100 MG TABLET PO SCH ×2 (09:17→16:31)
[2018-10-11] MEDS: MULTIVITAMINS WITH MINERALS, THERAPEUTIC TABLET PO SCH (09:17)
[2018-10-11] MEDS: FOLIC ACID 1 MG TABLET PO SCH (09:17)
[2018-10-11] MEDS: TRIHEXYPHENIDYL HCL 2 MG TABLET PO SCH ×3 (09:17→16:30)
[2018-10-11 16:00] VITALS: BP 109/73
[2018-10-11] MEDS: MIRTAZAPINE 15 MG TABLET PO SCH (20:44)
[2018-10-11] MEDS: DIVALPROEX SODIUM 500 MG ER TABLET PO SCH (20:44)
[2018-10-11] MEDS: HALOPERIDOL 10 MG TABLET PO SCH (20:44)
[2018-10-12 06:17] VITALS: BP 120/81
[2018-10-12 08:13] VITALS: BP 105/73
[2018-10-12] MEDS: MULTIVITAMINS WITH MINERALS, THERAPEUTIC TABLET PO SCH (08:31)
[2018-10-12] MEDS: FOLIC ACID 1 MG TABLET PO SCH (08:32)
[2018-10-12] MEDS: THIAMINE HCL 100 MG TABLET PO SCH ×2 (08:32→16:38)
[2018-10-12] MEDS: TRIHEXYPHENIDYL HCL 2 MG TABLET PO SCH ×3 (08:32→16:38)
[2018-10-12 16:28] VITALS: BP 116/75
[2018-10-12] MEDS: DIVALPROEX SODIUM 500 MG ER TABLET PO SCH (20:28)
[2018-10-12] MEDS: MIRTAZAPINE 15 MG TABLET PO SCH (20:28)
[2018-10-12] MEDS: HALOPERIDOL 10 MG TABLET PO SCH (20:28)
[2018-10-12] MEDS: ZOLPIDEM TARTRATE 10 MG TABLET PO PRN (21:23)
[2018-10-13 08:30] VITALS: BP 101/61
[2018-10-13] MEDS: THIAMINE HCL 100 MG TABLET PO SCH ×2 (08:30→16:28)
[2018-10-13] MEDS: FOLIC ACID 1 MG TABLET PO SCH (08:30)
[2018-10-13] MEDS: MULTIVITAMINS WITH MINERALS, THERAPEUTIC TABLET PO SCH (08:30)
[2018-10-13] MEDS: TRIHEXYPHENIDYL HCL 2 MG TABLET PO SCH ×3 (08:30→16:28)
[2018-10-13 16:36] VITALS: BP 104/71
[2018-10-13] MEDS: HALOPERIDOL 10 MG TABLET PO SCH (20:10)
[2018-10-13] MEDS: MIRTAZAPINE 15 MG TABLET PO SCH (20:11)
[2018-10-13] MEDS: DIVALPROEX SODIUM 500 MG ER TABLET PO SCH (20:11)
[2018-10-13] MEDS: ZOLPIDEM TARTRATE 10 MG TABLET PO PRN (21:12)
[2018-10-14 05:44] VITALS: BP 110/68
[2018-10-14 08:26] VITALS: BP 110/69
[2018-10-14] MEDS: TRIHEXYPHENIDYL HCL 2 MG TABLET PO SCH ×3 (08:51→16:36)
[2018-10-14] MEDS: FOLIC ACID 1 MG TABLET PO SCH (08:51)
[2018-10-14] MEDS: THIAMINE HCL 100 MG TABLET PO SCH ×2 (08:51→16:36)
[2018-10-14] MEDS: MULTIVITAMINS WITH MINERALS, THERAPEUTIC TABLET PO SCH (08:51)
[2018-10-14 17:25] VITALS: BP 109/67
[2018-10-14] MEDS: LORazepam 2 MG TABLET PO PRN (19:31)
[2018-10-14] MEDS: HALOPERIDOL 10 MG TABLET PO SCH (20:35)
[2018-10-14] MEDS: MIRTAZAPINE 15 MG TABLET PO SCH (20:36)
[2018-10-14] MEDS: DIVALPROEX SODIUM 500 MG ER TABLET PO SCH (20:36)
[2018-10-15 00:24] VITALS: BP 110/67
[2018-10-15 08:11] VITALS: BP 112/68
[2018-10-15] MEDS: FOLIC ACID 1 MG TABLET PO SCH (08:50)
[2018-10-15] MEDS: THIAMINE HCL 100 MG TABLET PO SCH ×2 (08:50→16:30)
[2018-10-15] MEDS: TRIHEXYPHENIDYL HCL 2 MG TABLET PO SCH ×3 (08:50→16:30)
[2018-10-15] MEDS: MULTIVITAMINS WITH MINERALS, THERAPEUTIC TABLET PO SCH (08:50)
[2018-10-15 16:07] VITALS: BP 111/60
[2018-10-15] MEDS: LORazepam 2 MG TABLET PO PRN (16:38)
[2018-10-15] MEDS: DIVALPROEX SODIUM 500 MG ER TABLET PO SCH (20:29)
[2018-10-15] MEDS: HALOPERIDOL 10 MG TABLET PO SCH (20:29)
[2018-10-15] MEDS: MIRTAZAPINE 15 MG TABLET PO SCH (20:29)
[2018-10-16 06:27] VITALS: BP 110/68
[2018-10-16 08:22] VITALS: BP 108/68
[2018-10-16] MEDS: THIAMINE HCL 100 MG TABLET PO SCH ×2 (08:44→16:33)
[2018-10-16] MEDS: TRIHEXYPHENIDYL HCL 2 MG TABLET PO SCH ×3 (08:44→16:33)
[2018-10-16] MEDS: FOLIC ACID 1 MG TABLET PO SCH (08:44)
[2018-10-16] MEDS: MULTIVITAMINS WITH MINERALS, THERAPEUTIC TABLET PO SCH (08:44)
[2018-10-16 16:14] VITALS: BP 105/57
[2018-10-16] MEDS: MIRTAZAPINE 15 MG TABLET PO SCH (20:36)
[2018-10-16] MEDS: HALOPERIDOL 10 MG TABLET PO SCH (20:36)
[2018-10-16] MEDS: DIVALPROEX SODIUM 500 MG ER TABLET PO SCH (20:37)
[2018-10-16] MEDS: ZOLPIDEM TARTRATE 10 MG TABLET PO PRN (21:14)
[2018-10-17 05:37] VITALS: BP 110/68
[2018-10-17 08:09] VITALS: BP 109/62
[2018-10-17] MEDS: MULTIVITAMINS WITH MINERALS, THERAPEUTIC TABLET PO SCH (08:33)
[2018-10-17] MEDS: TRIHEXYPHENIDYL HCL 2 MG TABLET PO SCH ×3 (08:33→16:32)
[2018-10-17] MEDS: FOLIC ACID 1 MG TABLET PO SCH (08:34)
[2018-10-17] MEDS: THIAMINE HCL 100 MG TABLET PO SCH ×2 (08:34→16:32)
[2018-10-17 16:03] VITALS: BP 114/70
[2018-10-17] MEDS: MAGNESIUM HYDROXIDE SUSPENSION 30 ML UDCUP PO PRN (18:03)
[2018-10-17] MEDS: HALOPERIDOL 10 MG TABLET PO SCH (20:29)
[2018-10-17] MEDS: DIVALPROEX SODIUM 500 MG ER TABLET PO SCH (20:29)
[2018-10-17] MEDS: MIRTAZAPINE 15 MG TABLET PO SCH (20:29)
[2018-10-17] MEDS: ZOLPIDEM TARTRATE 10 MG TABLET PO PRN (21:19)
[2018-10-18 06:16] VITALS: BP 110/68
[2018-10-18 08:15] VITALS: BP 104/75
[2018-10-18] MEDS: FOLIC ACID 1 MG TABLET PO SCH (08:37)
[2018-10-18] MEDS: MULTIVITAMINS WITH MINERALS, THERAPEUTIC TABLET PO SCH (08:37)
[2018-10-18] MEDS: TRIHEXYPHENIDYL HCL 2 MG TABLET PO SCH ×3 (08:37→16:05)
[2018-10-18] MEDS: THIAMINE HCL 100 MG TABLET PO SCH (08:37)
[2018-10-18] MEDS: LORazepam 2 MG TABLET PO PRN (13:46)
[2018-10-18 16:14] VITALS: BP 100/69
[2018-10-18] MEDS: MAGNESIUM HYDROXIDE SUSPENSION 30 ML UDCUP PO PRN (19:42)
[2018-10-18] MEDS: MIRTAZAPINE 15 MG TABLET PO SCH (20:30)
[2018-10-18] MEDS: HALOPERIDOL 10 MG TABLET PO SCH (20:30)
[2018-10-18] MEDS: DIVALPROEX SODIUM 500 MG ER TABLET PO SCH (20:30)
[2018-10-18] MEDS: ZOLPIDEM TARTRATE 10 MG TABLET PO PRN (20:54)
[2018-10-19 05:20] VITALS: BP 106/70
[2018-10-19 08:33] VITALS: BP 122/76
[2018-10-19] MEDS: MULTIVITAMINS WITH MINERALS, THERAPEUTIC TABLET PO SCH (08:39)
[2018-10-19] MEDS: TRIHEXYPHENIDYL HCL 2 MG TABLET PO SCH ×3 (08:39→17:01)
[2018-10-19 16:17] VITALS: BP 117/74
[2018-10-19] MEDS: DIVALPROEX SODIUM 500 MG ER TABLET PO SCH (20:11)
[2018-10-19] MEDS: HALOPERIDOL 5 MG TABLET PO SCH (20:11)
[2018-10-19] MEDS: MIRTAZAPINE 15 MG TABLET PO SCH (20:11)
[2018-10-19] MEDS: ZOLPIDEM TARTRATE 10 MG TABLET PO PRN (21:19)
[2018-10-20 05:20] VITALS: BP 110/75
[2018-10-20] MEDS: TRIHEXYPHENIDYL HCL 2 MG TABLET PO SCH ×3 (08:02→16:21)
[2018-10-20] MEDS: MULTIVITAMINS WITH MINERALS, THERAPEUTIC TABLET PO SCH (08:03)
[2018-10-20 08:09] VITALS: BP 100/61
[2018-10-20 16:00] VITALS: BP 100/62
[2018-10-20] MEDS: DIVALPROEX SODIUM 500 MG ER TABLET PO SCH (20:05)
[2018-10-20] MEDS: HALOPERIDOL 5 MG TABLET PO SCH (20:06)
[2018-10-20] MEDS: MIRTAZAPINE 15 MG TABLET PO SCH (20:06)
[2018-10-20] MEDS: MAGNESIUM HYDROXIDE SUSPENSION 30 ML UDCUP PO PRN (20:15)
[2018-10-20] MEDS: ZOLPIDEM TARTRATE 10 MG TABLET PO PRN (21:48)
[2018-10-21 01:21] VITALS: BP 110/72
[2018-10-21 08:31] VITALS: BP 108/68
[2018-10-21] MEDS: MULTIVITAMINS WITH MINERALS, THERAPEUTIC TABLET PO SCH (09:08)
[2018-10-21] MEDS: TRIHEXYPHENIDYL HCL 2 MG TABLET PO SCH ×3 (09:08→16:30)
[2018-10-21] MEDS: LORazepam 2 MG TABLET PO PRN ×2 (12:31→17:41)
[2018-10-21 16:10] VITALS: BP 112/70
[2018-10-21] MEDS: MAGNESIUM HYDROXIDE SUSPENSION 30 ML UDCUP PO PRN (18:04)
[2018-10-21] MEDS: MIRTAZAPINE 15 MG TABLET PO SCH (20:01)
[2018-10-21] MEDS: HALOPERIDOL 5 MG TABLET PO SCH (20:01)
[2018-10-21] MEDS: DIVALPROEX SODIUM 500 MG ER TABLET PO SCH (20:01)
[2018-10-21] MEDS: ZOLPIDEM TARTRATE 10 MG TABLET PO PRN (20:35)
[2018-10-22 06:50] VITALS: BP 102/72
[2018-10-22] MEDS: MULTIVITAMINS WITH MINERALS, THERAPEUTIC TABLET PO SCH (08:09)
[2018-10-22] MEDS: TRIHEXYPHENIDYL HCL 2 MG TABLET PO SCH ×3 (08:10→16:57)
[2018-10-22 08:22] VITALS: BP 102/72
[2018-10-22] MEDS ORDERED: DIVA500T52 PO (15:04)
[2018-10-22] MEDS ORDERED: TRIH2TAB3 PO (15:04)
[2018-10-22] MEDS ORDERED: HALO5TAB2 PO (15:04)
[2018-10-22] MEDS ORDERED: MIRT15 PO (15:04)
[2018-10-22 16:31] VITALS: BP 107/69
[2018-10-22] MEDS: DIVALPROEX SODIUM 500 MG ER TABLET PO SCH (20:05)
[2018-10-22] MEDS: MIRTAZAPINE 15 MG TABLET PO SCH (20:06)
[2018-10-22] MEDS: HALOPERIDOL 5 MG TABLET PO SCH (20:06)
[2018-10-23 00:54] VITALS: BP 115/74
[2018-10-23] MEDS: ZOLPIDEM TARTRATE 10 MG TABLET PO PRN (01:21)
[2018-10-23 08:15] VITALS: BP 105/75
[2018-10-23 08:19] LABS: BASOPHILS % (AUTO) 0.4 % (0.0-2.0); HEMATOCRIT 37.5 % (36-46); LYMPHOCYTES # (AUTO) 3.2 K/uL (1.0-4.8); LYMPHOCYTES % (AUTO) 36.2 % (22.0-44.0); MEAN CORPUSCULAR HEMOGLOBIN 31.8 pg (26.0-34.0); MEAN CORPUSCULAR HGB CONC 34.8 G/dL (31.0-37.0); MEAN CORPUSCULAR VOLUME 92 fL (80-100); MONOCYTES # (AUTO) 0.7 K/uL (0.1-1.0); MONOCYTES % (AUTO) 8.1 % (2.0-9.0); NEUTROPHILS # (AUTO) 4.7 K/uL (1.8-7.7); NEUTROPHILS % (AUTO) 54.3 % (40.0-70.0); PLATELET COUNT (AUTO) 191 K/uL (150-450); RED BLOOD CELL COUNT(AUTO) 4.09 MIL/uL (4.00-5.20); RED CELL DISTRIBUTION WIDTH 12.9 % (11.5-14.5)
[2018-10-23 08:28] LABS: ALBUMIN 3.3 g/dL (3.4-5.0); BILIRUBIN,DIRECT 0.1 mg/dL (0.00-0.20); BILIRUBIN,TOTAL 0.2 mg/dL (0.1-1.0); TOTAL PROTEIN, SERUM 5.6 g/dL (6.4-8.2)
[2018-10-23] MEDS: TRIHEXYPHENIDYL HCL 2 MG TABLET PO SCH (08:58)
[2018-10-23] MEDS: MULTIVITAMINS WITH MINERALS, THERAPEUTIC TABLET PO SCH (08:58)
[2018-10-23] MEDS ORDERED: MULT-1239 PO (09:02)
== END 2018-10-23 10:15 | disposition home or self-care (01) | DRG 885 ==
LOC: B2X 17:38 → B2S 10-19 12:25
PROVIDERS: ADMIT Psychiatry & Neurology Psychiatry; ATTEND Psychiatry & Neurology Psychiatry
DX: F25.0 Schizoaffective disorder, bipolar type (principal); R45.851 Suicidal ideations; F41.9 Anxiety disorder, unspecified; R73.9 Hyperglycemia, unspecified; R10.13 Epigastric pain; J44.9 Chronic obstructive pulmonary disease, unspecified; K59.09 Other constipation; E03.9 Hypothyroidism, unspecified; Z79.899 Other long term (current) drug therapy; Z91.19 Patient's noncompliance with other medical treatment and regimen; Z79.890 Hormone replacement therapy; Z28.21 Immunization not carried out because of patient refusal
CPT/HCPCS: 80173; 83036; 84439; 84443

== ENCOUNTER 2018-12-23 22:54 | Inpatient (IN) | payer MEDICARE, OTHER ==
[~2018-12-23] VITALS: Ht 154.9 cm; Wt 52.6 kg
[~2018-12-23 22:54] MED LIST changes: -HALO10 PO; +HALO5TAB2 PO; +MULT-1239 PO; +TRIH2TAB3 PO
[2018-12-24] MEDS ORDERED: LORazepam 2 MG/ML VIAL IM ONE ×2 (00:30→12:00)
[2018-12-24] MEDS ORDERED: DiphenhydrAMINE HCL 50 MG/ML VIAL IM ONE (00:30)
[2018-12-24] MEDS ORDERED: HALOPERIDOL LACTATE 5 MG/ML VIAL IM ONE ×2 (00:30→12:00)
[2018-12-24 00:50] LABS: BASOPHILS % (AUTO) 0.7 % (0.0-2.0); EOSINOPHILS % (AUTO) 0.1 % (1.0-6.0); HEMATOCRIT 42.6 % (36-46); LYMPHOCYTES # (AUTO) 2.6 K/uL (1.0-4.8); LYMPHOCYTES % (AUTO) 14.3 % (22.0-44.0); MEAN CORPUSCULAR HEMOGLOBIN 30.7 pg (26.0-34.0); MEAN CORPUSCULAR HGB CONC 32.9 G/dL (31.0-37.0); MEAN CORPUSCULAR VOLUME 93 fL (80-100); MONOCYTES # (AUTO) 1.3 K/uL (0.1-1.0); MONOCYTES % (AUTO) 7.1 % (2.0-9.0); NEUTROPHILS # (AUTO) 14.2 K/uL (1.8-7.7); NEUTROPHILS % (AUTO) 77.8 % (40.0-70.0); PLATELET COUNT (AUTO) 420 K/uL (150-450); RED BLOOD CELL COUNT(AUTO) 4.58 MIL/uL (4.00-5.20); RED CELL DISTRIBUTION WIDTH 13.3 % (11.5-14.5)
[2018-12-24 00:58] LABS: ANION GAP 16 mmol/L (8-16); CARBON DIOXIDE 24 mmol/L (22-29); CHLORIDE 93 mmol/L (98-107); CREATININE 0.74 mg/dL (0.60-1.30); GLOMERULAR FILTR. RATE CALC > 60 mL/min (>60); GLUCOSE,RANDOM 93 mg/dL (70-110); POTASSIUM 3.4 mmol/L (3.5-5.1); SODIUM SERUM 133 mmol/L (136-145); UREA NITROGEN, BLOOD 14 mg/dL (7-18)
[2018-12-24 01:03] LABS: ALANINE AMINOTRANSFERASE 20 U/L (12-78); ALKALINE PHOSPHATASE 49 U/L (46-116); ASPARTATE AMINOTRANSFERASE 27 U/L (15-37); BILIRUBIN,TOTAL 0.7 mg/dL (0.1-1.0); TOTAL PROTEIN, SERUM 6.9 g/dL (6.4-8.2)
[2018-12-24 01:56] LABS: APPEARANCE,URINE CLOUDY (CLEAR); BILIRUBIN,URINE NEGATIVE (NEGATIVE); GLUCOSE, URINE (UA) NEGATIVE (NEGATIVE); KETONES,URINE 15 mg/dL (NEGATIVE); LEUKOCYTE ESTERASE ,URINE SMALL (NEGATIVE); NITRATE,URINE NEGATIVE (NEGATIVE); OCCULT BLOOD,URINE TRACE (NEGATIVE); PH,URINE 5.5 (5.0-8.0); PROTEIN,URINE NEGATIVE (NEGATIVE)
[2018-12-24 02:00] LABS: AMPHET/METH SCREEN,URINE NEGATIVE (NEGATIVE); BARBITURATE SCREEN, URINE NEGATIVE (NEGATIVE); BENZODIAZEPINES SCREEN,URINE NEGATIVE (NEGATIVE); CANNABINOID SCREEN,URINE NEGATIVE (NEGATIVE); COCAINE SCREEN,URINE NEGATIVE (NEGATIVE); METHADONE SCREEN, URINE NEGATIVE (NEGATIVE); OPIATE SCREEN,URINE NEGATIVE (NEGATIVE)
[2018-12-24 02:02] LABS: PHENCYCLIDINE SCREEN,URINE NEGATIVE (NEGATIVE)
[2018-12-24 02:07] LABS: BACTERIA,URINE Moderate /HPF (None Seen); RBC,URINE 0-2 /HPF (0-2); SQUAMOUS EPITHELIAL CELL,UR Moderate /LPF (None Seen)
[2018-12-24] MEDS ORDERED: QUEtiapine FUMARATE 100 MG TABLET PO PRN (02:15)
[2018-12-24] MEDS ORDERED: ZOLPIDEM TARTRATE 10 MG TABLET PO PRN (02:15)
[2018-12-24] MEDS ORDERED: LIDOCAINE/PF 1% 2 ML VIAL IM ONE (03:15)
[2018-12-24] MEDS ORDERED: CefTRIAXone SODIUM 1 GM/VIAL IM ONE (03:15)
[2018-12-24] MEDS ORDERED: HydrOXYzine PAMOATE 50 MG CAPSULE PO PRN (14:45)
[2018-12-24] MEDS ORDERED: HALOPERIDOL 5 MG TABLET PO PRN (14:45)
[2018-12-24] MEDS ORDERED: ACETAMINOPHEN 325 MG TABLET PO PRN (14:45)
[2018-12-24] MEDS ORDERED: MAGNESIUM HYDROXIDE SUSPENSION 30 ML UDCUP PO PRN (14:45)
[2018-12-24] MEDS ORDERED: PROMETHAZINE HCL 25 MG TABLET PO PRN (14:45)
[2018-12-24] MEDS ORDERED: TUBERCULIN, PURIFIED PROTEIN DERIVATIVE 5 TU/0.1 ML SYG ID ONE (14:45)
[2018-12-24] MEDS ORDERED: MAG HYDROX/AL HYDROX/SIMETH ES 30 ML SUSPENSION UDCUP PO PRN (14:45)
[2018-12-24] MEDS ORDERED: GuaiFENesin/D-METHORPHAN [SUGAR-FREE] 200-20MG/10 ML SYRUP UDCUP PO PRN (14:45)
[2018-12-24] MEDS ORDERED: LOPERAMIDE HCL 2 MG CAPSULE PO PRN (14:45)
[2018-12-24 16:22] VITALS: BP 124/62
[2018-12-24] MEDS: THIAMINE HCL 100 MG TABLET PO SCH (17:30)
[2018-12-24] MEDS ORDERED: POTASSIUM CHLORIDE 20 MEQ ER TABLET PO ONE (18:15)
[2018-12-24] MEDS ORDERED: BISACODYL 5 MG EC TABLET PO PRN (18:15)
[2018-12-24] MEDS ORDERED: HALOPERIDOL 5 MG TABLET PO SCH ×2 (21:00)
[2018-12-24] MEDS: DIVALPROEX SODIUM 500 MG ER TABLET PO SCH (21:12)
[2018-12-24] MEDS: MIRTAZAPINE 15 MG TABLET PO SCH (23:27)
[2018-12-25] VITALS (11 sets, daily range): BP systolic 100–117; BP diastolic 59–83
[2018-12-25] MEDS: THIAMINE HCL 100 MG TABLET PO SCH ×2 (08:11→16:48)
[2018-12-25] MEDS: FOLIC ACID 1 MG TABLET PO SCH (08:11)
[2018-12-25] MEDS: MULTIVITAMINS WITH MINERALS, THERAPEUTIC TABLET PO SCH (08:11)
[2018-12-25] MEDS: SULFAMETHOX/TRIMETH DS 800-160 MG/TABLET PO SCH ×2 (08:11→16:48)
[2018-12-25] MEDS: LORazepam 2 MG TABLET PO PRN ×2 (08:18→17:13)
[2018-12-25 08:48] LABS: BASOPHILS % (AUTO) 0.6 % (0.0-2.0); EOSINOPHILS % (AUTO) 1.6 % (1.0-6.0); HEMATOCRIT 42.1 % (36-46); HEMOGLOBIN 13.8 g/dL (12.0-16.0); LYMPHOCYTES # (AUTO) 3.5 K/uL (1.0-4.8); LYMPHOCYTES % (AUTO) 38.4 % (22.0-44.0); MEAN CORPUSCULAR HEMOGLOBIN 31.1 pg (26.0-34.0); MEAN CORPUSCULAR HGB CONC 32.9 G/dL (31.0-37.0); MEAN CORPUSCULAR VOLUME 95 fL (80-100); MONOCYTES # (AUTO) 0.5 K/uL (0.1-1.0); MONOCYTES % (AUTO) 5.7 % (2.0-9.0); NEUTROPHILS # (AUTO) 4.9 K/uL (1.8-7.7); NEUTROPHILS % (AUTO) 53.7 % (40.0-70.0); PLATELET COUNT (AUTO) 332 K/uL (150-450); RED BLOOD CELL COUNT(AUTO) 4.45 MIL/uL (4.00-5.20); RED CELL DISTRIBUTION WIDTH 13.3 % (11.5-14.5)
[2018-12-25 09:05] LABS: HEMOGLOBIN A1C 5.8 % (4.5-6.2)
[2018-12-25 09:18] LABS: ALANINE AMINOTRANSFERASE 27 U/L (12-78); ALBUMIN 3.3 g/dL (3.4-5.0); ALKALINE PHOSPHATASE 43 U/L (46-116); ANION GAP 5 mmol/L (8-16); ASPARTATE AMINOTRANSFERASE 30 U/L (15-37); BILIRUBIN,TOTAL 0.4 mg/dL (0.1-1.0); CALCIUM, TOTAL 8.6 mg/dL (8.8-10.5); CARBON DIOXIDE 32 mmol/L (22-29); CHLORIDE 102 mmol/L (98-107); CHOL/HDL RATIO 2.9 (3.9-5.7); CHOLESTEROL 158 mg/dL (131-200); CREATININE 0.58 mg/dL (0.60-1.30); FREE T4 (FREE THYROXINE) 1.13 ng/dL (0.76-1.46); GLOMERULAR FILTR. RATE CALC > 60 mL/min (>60); GLUCOSE,RANDOM 98 mg/dL (70-110); HDL CHOLESTEROL 55 mg/dL (40-60); LDL CHOL (CALC.) 91 mg/dL (0-130); POTASSIUM 3.7 mmol/L (3.5-5.1); SODIUM SERUM 139 mmol/L (136-145); THYROID STIMULATING HORMONE 3.75 uIU/mL (0.36-3.74); TOTAL PROTEIN, SERUM 6.1 g/dL (6.4-8.2); TRIGLYCERIDES 59 mg/dL (15-150); UREA NITROGEN, BLOOD 11 mg/dL (7-18); VALPROIC ACID 61 mcg/mL (50-100)
[2018-12-25] MEDS ORDERED: OLANZapine 5 MG RAPDIS TABLET PO PRN (13:00)
[2018-12-25] MEDS: MIRTAZAPINE 15 MG TABLET PO SCH (20:05)
[2018-12-25] MEDS: DIVALPROEX SODIUM 500 MG ER TABLET PO SCH (20:05)
[2018-12-25] MEDS ORDERED: OLANZapine 10 MG RAPDIS TABLET PO SCH (21:00)
[2018-12-26 01:40] VITALS: BP 106/72
[2018-12-26 05:25] VITALS: BP 116/81
[2018-12-26] MEDS: SULFAMETHOX/TRIMETH DS 800-160 MG/TABLET PO SCH ×2 (08:49→16:01)
[2018-12-26] MEDS: MULTIVITAMINS WITH MINERALS, THERAPEUTIC TABLET PO SCH (08:49)
[2018-12-26] MEDS: FOLIC ACID 1 MG TABLET PO SCH (08:50)
[2018-12-26] MEDS: LORazepam 2 MG TABLET PO PRN (08:50)
[2018-12-26] MEDS: THIAMINE HCL 100 MG TABLET PO SCH ×2 (08:50→16:01)
[2018-12-26 09:37] VITALS: BP 108/62
[2018-12-26 10:07] VITALS: BP 108/62
[2018-12-26 16:29] VITALS: BP 101/61
[2018-12-26] MEDS ORDERED: QUEtiapine FUMARATE 100 MG TABLET PO PRN (17:00)
[2018-12-26] MEDS: DIVALPROEX SODIUM 500 MG ER TABLET PO SCH (20:11)
[2018-12-26] MEDS: MIRTAZAPINE 15 MG TABLET PO SCH (20:11)
[2018-12-26] MEDS ORDERED: QUEtiapine FUMARATE 200 MG TABLET PO SCH (21:00)
[2018-12-27 06:52] VITALS: BP 110/64
[2018-12-27 08:32] VITALS: BP 109/66
[2018-12-27] MEDS: SULFAMETHOX/TRIMETH DS 800-160 MG/TABLET PO SCH ×2 (08:54→16:27)
[2018-12-27] MEDS: THIAMINE HCL 100 MG TABLET PO SCH ×2 (08:54→16:28)
[2018-12-27] MEDS: FOLIC ACID 1 MG TABLET PO SCH (08:54)
[2018-12-27] MEDS: MULTIVITAMINS WITH MINERALS, THERAPEUTIC TABLET PO SCH (08:54)
[2018-12-27] MEDS: LORazepam 2 MG TABLET PO PRN (08:55)
[2018-12-27] MEDS ORDERED: IBUPROFEN 600 MG TABLET PO PRN (12:45)
[2018-12-27] MEDS ORDERED: ACETAMINOPHEN 325 MG TABLET PO PRN (12:45)
[2018-12-27 16:15] VITALS: BP 104/62
[2018-12-27 18:45] VITALS: BP 104/62
[2018-12-27] MEDS ORDERED: QUEtiapine FUMARATE 300 MG TABLET PO SCH (21:00)
[2018-12-27] MEDS: MIRTAZAPINE 15 MG TABLET PO SCH (21:21)
[2018-12-27] MEDS: DIVALPROEX SODIUM 500 MG ER TABLET PO SCH (21:21)
[2018-12-28 04:01] VITALS: BP 108/72
[2018-12-28 04:08] VITALS: BP_SYST 108; BP_DIAS 72; BP_DIAS 74
[2018-12-28 08:25] VITALS: BP 106/64
[2018-12-28] MEDS: FOLIC ACID 1 MG TABLET PO SCH (08:44)
[2018-12-28] MEDS: THIAMINE HCL 100 MG TABLET PO SCH ×2 (08:44→16:08)
[2018-12-28] MEDS: MULTIVITAMINS WITH MINERALS, THERAPEUTIC TABLET PO SCH (08:44)
[2018-12-28] MEDS: SULFAMETHOX/TRIMETH DS 800-160 MG/TABLET PO SCH ×2 (08:44→16:08)
[2018-12-28] MEDS: LORazepam 2 MG TABLET PO PRN (16:08)
[2018-12-28 16:28] VITALS: BP 117/69
[2018-12-28] MEDS: QUEtiapine FUMARATE 200 MG TABLET PO SCH (20:34)
[2018-12-28] MEDS: MIRTAZAPINE 15 MG TABLET PO SCH (20:34)
[2018-12-28] MEDS: DIVALPROEX SODIUM 500 MG ER TABLET PO SCH (20:34)
[2018-12-29 00:40] VITALS: BP 102/63
[2018-12-29 01:03] VITALS: BP 102/63
[2018-12-29 08:18] VITALS: BP 102/63
[2018-12-29] MEDS: FOLIC ACID 1 MG TABLET PO SCH (08:51)
[2018-12-29] MEDS: MULTIVITAMINS WITH MINERALS, THERAPEUTIC TABLET PO SCH (08:51)
[2018-12-29] MEDS: SULFAMETHOX/TRIMETH DS 800-160 MG/TABLET PO SCH ×2 (08:51→16:27)
[2018-12-29] MEDS: THIAMINE HCL 100 MG TABLET PO SCH ×2 (08:52→16:27)
[2018-12-29] MEDS: LORazepam 2 MG TABLET PO PRN (13:07)
[2018-12-29 16:14] VITALS: BP 113/71
[2018-12-29] MEDS: MIRTAZAPINE 15 MG TABLET PO SCH (20:26)
[2018-12-29] MEDS: DIVALPROEX SODIUM 500 MG ER TABLET PO SCH (20:26)
[2018-12-29] MEDS: QUEtiapine FUMARATE 200 MG TABLET PO SCH (20:26)
[2018-12-30 00:58] VITALS: BP 105/65
[2018-12-30 08:06] VITALS: BP 103/63
[2018-12-30] MEDS: FOLIC ACID 1 MG TABLET PO SCH (09:40)
[2018-12-30] MEDS: MULTIVITAMINS WITH MINERALS, THERAPEUTIC TABLET PO SCH (09:40)
[2018-12-30] MEDS: THIAMINE HCL 100 MG TABLET PO SCH ×2 (09:40→16:53)
[2018-12-30 16:17] VITALS: BP 111/65
[2018-12-30] MEDS: QUEtiapine FUMARATE 200 MG TABLET PO SCH (20:02)
[2018-12-30] MEDS: DIVALPROEX SODIUM 500 MG ER TABLET PO SCH ×2 (20:33→21:31)
[2018-12-30] MEDS: MIRTAZAPINE 15 MG TABLET PO SCH ×2 (20:33→21:31)
[2018-12-31 05:48] VITALS: BP 107/67
[2018-12-31 08:50] VITALS: BP 102/65
[2018-12-31] MEDS: FOLIC ACID 1 MG TABLET PO SCH (09:38)
[2018-12-31] MEDS: MULTIVITAMINS WITH MINERALS, THERAPEUTIC TABLET PO SCH (09:38)
[2018-12-31] MEDS: THIAMINE HCL 100 MG TABLET PO SCH ×2 (09:38→16:40)
[2018-12-31 16:21] VITALS: BP 109/66
[2018-12-31] MEDS: LORazepam 2 MG TABLET PO PRN (17:31)
[2018-12-31] MEDS: MIRTAZAPINE 15 MG TABLET PO SCH (20:33)
[2018-12-31] MEDS ORDERED: QUEtiapine FUMARATE 200 MG TABLET PO SCH (21:00)
[2019-01-01 06:29] VITALS: BP 107/72
[2019-01-01 08:28] VITALS: BP 108/64
[2019-01-01] MEDS: THIAMINE HCL 100 MG TABLET PO SCH ×2 (09:00→16:36)
[2019-01-01] MEDS: FOLIC ACID 1 MG TABLET PO SCH (09:00)
[2019-01-01] MEDS: MULTIVITAMINS WITH MINERALS, THERAPEUTIC TABLET PO SCH (09:00)
[2019-01-01 16:22] VITALS: BP 105/69
[2019-01-01] MEDS: MIRTAZAPINE 15 MG TABLET PO SCH (20:02)
[2019-01-01] MEDS ORDERED: QUEtiapine FUMARATE 300 MG TABLET PO SCH (21:00)
[2019-01-02 05:15] VITALS: BP 110/68
[2019-01-02 08:21] VITALS: BP 109/72
[2019-01-02] MEDS: THIAMINE HCL 100 MG TABLET PO SCH ×2 (10:03→16:56)
[2019-01-02] MEDS: MULTIVITAMINS WITH MINERALS, THERAPEUTIC TABLET PO SCH (10:03)
[2019-01-02] MEDS: FOLIC ACID 1 MG TABLET PO SCH (10:03)
[2019-01-02 19:56] VITALS: BP 121/68
[2019-01-02] MEDS: MIRTAZAPINE 15 MG TABLET PO SCH (20:25)
[2019-01-02] MEDS ORDERED: QUEtiapine FUMARATE 200 MG TABLET PO SCH (21:00)
[2019-01-03 06:43] VITALS: BP 119/71
[2019-01-03 08:15] VITALS: BP 114/83
[2019-01-03] MEDS: THIAMINE HCL 100 MG TABLET PO SCH (08:57)
[2019-01-03] MEDS: MULTIVITAMINS WITH MINERALS, THERAPEUTIC TABLET PO SCH (08:57)
[2019-01-03] MEDS: FOLIC ACID 1 MG TABLET PO SCH (08:57)
[2019-01-03] MEDS ORDERED: ChlorproMAZINE HCL 100 MG TABLET PO PRN (15:45)
[2019-01-03 16:24] VITALS: BP 108/70
[2019-01-03] MEDS: LORazepam 2 MG TABLET PO PRN (17:34)
[2019-01-03] MEDS: MIRTAZAPINE 15 MG TABLET PO SCH (20:34)
[2019-01-03] MEDS ORDERED: ChlorproMAZINE HCL 100 MG TABLET PO SCH (21:00)
[2019-01-04 02:49] VITALS: BP 111/68
[2019-01-04 08:18] VITALS: BP 139/69
[2019-01-04] MEDS: MULTIVITAMINS WITH MINERALS, THERAPEUTIC TABLET PO SCH (08:41)
[2019-01-04] MEDS ORDERED: CHLO100T23 PO (12:19)
[2019-01-04] MEDS ORDERED: MIRT15 PO ×2 (12:19→12:35)
[2019-01-04] MEDS ORDERED: CHLO100T24 PO (12:35)
== END 2019-01-04 17:55 | disposition home or self-care (01) | DRG 885 ==
LOC: EMS 22:55 → B2X 12-24 11:29
PROVIDERS: ADMIT Psychiatry & Neurology Psychiatry; ATTEND Psychiatry & Neurology Psychiatry
DX: F20.0 Paranoid schizophrenia (principal); N39.0 Urinary tract infection, site not specified; E87.1 Hypo-osmolality and hyponatremia; Z28.21 Immunization not carried out because of patient refusal; E87.6 Hypokalemia; K59.00 Constipation, unspecified; Z80.1 Family history of malignant neoplasm of trachea, bronchus and lung; Z83.3 Family history of diabetes mellitus; F17.210 Nicotine dependence, cigarettes, uncomplicated; M54.9 Dorsalgia, unspecified; Z91.19 Patient's noncompliance with other medical treatment and regimen
CPT/HCPCS: 80074; 80173; 83036; 84439; 84443; 87086; 90686; 96372; G0480; J0696; J1200; J1630; J2060; J3490

== ENCOUNTER 2019-07-11 14:02 | Inpatient (IN) | payer MEDICARE ==
[~2019-07-11] VITALS: Ht 162.6 cm; Wt 53.4 kg
[~2019-07-11 14:02] MED LIST changes: -HALO5TAB2 PO; -MIRT15 PO; -MULT-1239 PO; +QUET200T PO; +QUET200T29 PO; -TRIH2TAB3 PO
[2019-07-11 15:08] VITALS: BP 94/64
[2019-07-11] MEDS ORDERED: ACETAMINOPHEN 325 MG TABLET PO PRN (15:45)
[2019-07-11] MEDS ORDERED: GuaiFENesin/D-METHORPHAN [SUGAR-FREE] 200-20MG/10 ML SYRUP UDCUP PO PRN (15:45)
[2019-07-11] MEDS ORDERED: MAG HYDROX/AL HYDROX/SIMETH ES 30 ML SUSPENSION UDCUP PO PRN (15:45)
[2019-07-11] MEDS ORDERED: ZOLPIDEM TARTRATE 10 MG TABLET PO PRN (15:45)
[2019-07-11] MEDS ORDERED: LOPERAMIDE HCL 2 MG CAPSULE PO PRN (15:45)
[2019-07-11] MEDS ORDERED: HydrOXYzine PAMOATE 50 MG CAPSULE PO PRN (15:45)
[2019-07-11] MEDS ORDERED: PROMETHAZINE HCL 25 MG TABLET PO PRN (15:45)
[2019-07-11] MEDS ORDERED: MAGNESIUM HYDROXIDE SUSPENSION 30 ML UDCUP PO PRN (15:45)
[2019-07-11 16:28] VITALS: BP 105/69
[2019-07-11] MEDS: THIAMINE HCL 100 MG TABLET PO SCH (16:46)
[2019-07-11] MEDS ORDERED: HALOPERIDOL LACTATE 5 MG/ML VIAL IM ONE (17:45)
[2019-07-11] MEDS ORDERED: DiphenhydrAMINE HCL 50 MG/ML VIAL IM ONE (17:45)
[2019-07-11] MEDS ORDERED: LORazepam 2 MG/ML VIAL IM ONE (17:45)
[2019-07-11] MEDS: DIVALPROEX SODIUM 500 MG ER TABLET PO SCH (21:00)
[2019-07-11] MEDS: QUEtiapine FUMARATE 200 MG TABLET PO SCH (21:00)
[2019-07-12 00:09] VITALS: BP 100/68
[2019-07-12 08:16] VITALS: BP 108/63
[2019-07-12 08:21] LABS: BASOPHILS % (AUTO) 0.5 % (0.0-2.0); HEMATOCRIT 40.7 % (36-46); HEMOGLOBIN 13.6 g/dL (12.0-16.0); LYMPHOCYTES # (AUTO) 2.9 K/uL (1.0-4.8); MEAN CORPUSCULAR HEMOGLOBIN 30.7 pg (26.0-34.0); MEAN CORPUSCULAR HGB CONC 33.3 G/dL (31.0-37.0); MEAN CORPUSCULAR VOLUME 92 fL (80-100); MONOCYTES # (AUTO) 0.8 K/uL (0.1-1.0); MONOCYTES % (AUTO) 7.8 % (2.0-9.0); NEUTROPHILS # (AUTO) 6.2 K/uL (1.8-7.7); NEUTROPHILS % (AUTO) 61.7 % (40.0-70.0); PLATELET COUNT (AUTO) 301 K/uL (150-450); RED BLOOD CELL COUNT(AUTO) 4.42 MIL/uL (4.00-5.20); RED CELL DISTRIBUTION WIDTH 14.2 % (11.5-14.5)
[2019-07-12 08:57] LABS: ALANINE AMINOTRANSFERASE 13 U/L (12-78); ALBUMIN 3.6 g/dL (3.4-5.0); ALKALINE PHOSPHATASE 57 U/L (46-116); ANION GAP 9 mmol/L (8-16); ASPARTATE AMINOTRANSFERASE 16 U/L (15-37); BILIRUBIN,TOTAL 0.5 mg/dL (0.1-1.0); CALCIUM, TOTAL 9.2 mg/dL (8.8-10.5); CARBON DIOXIDE 27 mmol/L (22-29); CHLORIDE 102 mmol/L (98-107); CHOL/HDL RATIO 3.6 (3.9-5.7); CHOLESTEROL 169 mg/dL (131-200); CREATININE 0.69 mg/dL (0.60-1.30); GLOMERULAR FILTR. RATE CALC > 60 mL/min (>60); GLUCOSE,RANDOM 82 mg/dL (70-110); HDL CHOLESTEROL 47 mg/dL (40-60); LDL CHOL (CALC.) 110 mg/dL (0-130); POTASSIUM 3.6 mmol/L (3.5-5.1); SODIUM SERUM 138 mmol/L (136-145); THYROID STIMULATING HORMONE 1.97 uIU/mL (0.36-3.74); TOTAL PROTEIN, SERUM 5.7 g/dL (6.4-8.2); TRIGLYCERIDES 62 mg/dL (15-150)
[2019-07-12 09:06] LABS: UREA NITROGEN, BLOOD 11 mg/dL (7-18)
[2019-07-12 09:07] LABS: HEMOGLOBIN A1C 5.9 % (4.5-6.2)
[2019-07-12] MEDS: THIAMINE HCL 100 MG TABLET PO SCH ×2 (09:14→16:36)
[2019-07-12] MEDS: MULTIVITAMINS WITH MINERALS, THERAPEUTIC TABLET PO SCH (09:15)
[2019-07-12] MEDS: FOLIC ACID 1 MG TABLET PO SCH (09:15)
[2019-07-12] MEDS: LORazepam 2 MG TABLET PO PRN ×2 (09:17→18:57)
[2019-07-12] MEDS: QUEtiapine FUMARATE 100 MG TABLET PO PRN (09:17)
[2019-07-12 16:11] VITALS: BP 110/79
[2019-07-12] MEDS: QUEtiapine FUMARATE 200 MG TABLET PO SCH (20:12)
[2019-07-12] MEDS: DIVALPROEX SODIUM 500 MG ER TABLET PO SCH (20:12)
[2019-07-13 09:40] VITALS: BP 102/75
[2019-07-13] MEDS: QUEtiapine FUMARATE 100 MG TABLET PO PRN (09:42)
[2019-07-13] MEDS: MULTIVITAMINS WITH MINERALS, THERAPEUTIC TABLET PO SCH (09:42)
[2019-07-13] MEDS: FOLIC ACID 1 MG TABLET PO SCH (09:42)
[2019-07-13] MEDS: THIAMINE HCL 100 MG TABLET PO SCH ×2 (09:42→16:44)
[2019-07-13] MEDS: LORazepam 2 MG TABLET PO PRN (09:42)
[2019-07-13 16:08] VITALS: BP 107/68
[2019-07-13] MEDS: DIVALPROEX SODIUM 500 MG ER TABLET PO SCH (20:36)
[2019-07-13] MEDS: QUEtiapine FUMARATE 200 MG TABLET PO SCH (20:36)
[2019-07-14 06:49] VITALS: BP 101/58
[2019-07-14 08:32] VITALS: BP 109/78
[2019-07-14] MEDS: THIAMINE HCL 100 MG TABLET PO SCH ×2 (09:20→17:06)
[2019-07-14] MEDS: FOLIC ACID 1 MG TABLET PO SCH (09:20)
[2019-07-14] MEDS: MULTIVITAMINS WITH MINERALS, THERAPEUTIC TABLET PO SCH (09:20)
[2019-07-14 16:16] VITALS: BP 112/84
[2019-07-14] MEDS: QUEtiapine FUMARATE 200 MG TABLET PO SCH (20:35)
[2019-07-14] MEDS: DIVALPROEX SODIUM 500 MG ER TABLET PO SCH (20:35)
[2019-07-15 00:59] VITALS: BP 96/75
[2019-07-15 08:06] VITALS: BP 108/69
[2019-07-15] MEDS: MULTIVITAMINS WITH MINERALS, THERAPEUTIC TABLET PO SCH (08:40)
[2019-07-15] MEDS: THIAMINE HCL 100 MG TABLET PO SCH ×2 (08:41→17:03)
[2019-07-15] MEDS: FOLIC ACID 1 MG TABLET PO SCH (08:41)
[2019-07-15 16:23] VITALS: BP 115/74
[2019-07-15 18:36] LABS: GLUCOMETER DEV NAME(LOC) BV2X.; GLUCOSE,POINT OF CARE 194 MG/DL (70-110)
[2019-07-15] MEDS: DIVALPROEX SODIUM 500 MG ER TABLET PO SCH (20:35)
[2019-07-15] MEDS ORDERED: QUEtiapine FUMARATE 200 MG TABLET PO SCH (21:00)
[2019-07-16 01:13] VITALS: BP 100/60
[2019-07-16 08:20] VITALS: BP 122/73
[2019-07-16] MEDS: FOLIC ACID 1 MG TABLET PO SCH (09:11)
[2019-07-16] MEDS: MULTIVITAMINS WITH MINERALS, THERAPEUTIC TABLET PO SCH (09:11)
[2019-07-16] MEDS: THIAMINE HCL 100 MG TABLET PO SCH ×2 (09:11→16:43)
[2019-07-16 16:06] VITALS: BP 108/64
[2019-07-16] MEDS: DIVALPROEX SODIUM 500 MG ER TABLET PO SCH (20:19)
[2019-07-16] MEDS: QUEtiapine FUMARATE 300 MG TABLET PO SCH (20:19)
[2019-07-17 01:14] VITALS: BP 118/68
[2019-07-17] MEDS: MULTIVITAMINS WITH MINERALS, THERAPEUTIC TABLET PO SCH (08:28)
[2019-07-17] MEDS: FOLIC ACID 1 MG TABLET PO SCH (08:28)
[2019-07-17] MEDS: THIAMINE HCL 100 MG TABLET PO SCH ×2 (08:28→17:12)
[2019-07-17 08:30] VITALS: BP 102/77
[2019-07-17 16:06] VITALS: BP 105/64
[2019-07-17] MEDS: DIVALPROEX SODIUM 500 MG ER TABLET PO SCH (20:17)
[2019-07-17] MEDS: QUEtiapine FUMARATE 300 MG TABLET PO SCH (20:17)
[2019-07-18 08:09] VITALS: BP 100/73
[2019-07-18] MEDS: FOLIC ACID 1 MG TABLET PO SCH (08:21)
[2019-07-18] MEDS: MULTIVITAMINS WITH MINERALS, THERAPEUTIC TABLET PO SCH (08:21)
[2019-07-18] MEDS: THIAMINE HCL 100 MG TABLET PO SCH ×2 (08:21→17:02)
[2019-07-18] MEDS ORDERED: DIVA500T52 PO (14:48)
[2019-07-18] MEDS ORDERED: QUET300T18 PO (14:48)
[2019-07-18 16:00] VITALS: BP 118/75
[2019-07-18] MEDS: DIVALPROEX SODIUM 500 MG ER TABLET PO SCH (20:30)
[2019-07-18] MEDS: QUEtiapine FUMARATE 300 MG TABLET PO SCH (20:30)
[2019-07-19 00:45] VITALS: BP 113/53
[2019-07-19] MEDS ORDERED: FOLI1 PO (05:26)
[2019-07-19] MEDS ORDERED: MULT-248 PO (05:26)
[2019-07-19] MEDS ORDERED: DIVA500T52 PO (05:26)
[2019-07-19] MEDS ORDERED: QUET300T2 PO (05:26)
[2019-07-19] MEDS ORDERED: MULT-1239 PO (05:26)
[2019-07-19] MEDS ORDERED: THIA100T67 PO (05:26)
[2019-07-19] MEDS: THIAMINE HCL 100 MG TABLET PO SCH ×2 (08:27→16:36)
[2019-07-19] MEDS: MULTIVITAMINS WITH MINERALS, THERAPEUTIC TABLET PO SCH (08:27)
[2019-07-19] MEDS: FOLIC ACID 1 MG TABLET PO SCH (08:27)
[2019-07-19] MEDS ORDERED: QUET200T29 PO (12:43)
[2019-07-19 16:20] VITALS: BP 109/78
[2019-07-19] MEDS ORDERED: QUEtiapine FUMARATE 200 MG TABLET PO SCH (21:00)
[2019-07-19] MEDS: DIVALPROEX SODIUM 500 MG ER TABLET PO SCH (21:07)
== END 2019-07-19 18:30 | disposition home or self-care (01) | DRG 885 ==
LOC: B2X 15:53
PROVIDERS: ADMIT Psychiatry & Neurology Psychiatry; ATTEND Psychiatry & Neurology Psychiatry
DX: F20.0 Paranoid schizophrenia (principal); F17.210 Nicotine dependence, cigarettes, uncomplicated; G89.29 Other chronic pain; M54.9 Dorsalgia, unspecified; Z65.3 Problems related to other legal circumstances; Z80.1 Family history of malignant neoplasm of trachea, bronchus and lung; Z83.3 Family history of diabetes mellitus; Z91.19 Patient's noncompliance with other medical treatment and regimen; Z79.899 Other long term (current) drug therapy
CPT/HCPCS: 83036; 84439; 84443; 86592; J1200; J1630; J2060

== ENCOUNTER 2019-08-13 20:28 | Inpatient (IN) | payer MEDICARE ==
[~2019-08-13] VITALS: Ht 162.6 cm; Wt 54.4 kg
[~2019-08-13 20:28] MED LIST changes: -QUET200T PO
[2019-08-13] MEDS ORDERED: QUET200T PO (20:51)
[2019-08-13] MEDS ORDERED: DIVA500T52 PO (20:51)
[2019-08-13 22:13] VITALS: BP 135/76
[2019-08-14] MEDS: QUEtiapine FUMARATE 100 MG TABLET PO PRN (00:07)
[2019-08-14] MEDS: ZOLPIDEM TARTRATE 10 MG TABLET PO PRN (00:08)
[2019-08-14] MEDS: LORazepam 1 MG TABLET PO PRN (00:08)
[2019-08-14 06:14] VITALS: BP 125/77
[2019-08-14 07:53] LABS: BASOPHILS % (AUTO) 0.6 % (0.0-2.0); EOSINOPHILS % (AUTO) 1.2 % (1.0-6.0); HEMATOCRIT 36.9 % (36-46); HEMOGLOBIN 11.9 g/dL (12.0-16.0); LYMPHOCYTES # (AUTO) 3.3 K/uL (1.0-4.8); LYMPHOCYTES % (AUTO) 44.5 % (22.0-44.0); MEAN CORPUSCULAR HEMOGLOBIN 31.3 pg (26.0-34.0); MEAN CORPUSCULAR HGB CONC 32.2 G/dL (31.0-37.0); MEAN CORPUSCULAR VOLUME 97 fL (80-100); MONOCYTES # (AUTO) 0.6 K/uL (0.1-1.0); MONOCYTES % (AUTO) 8.5 % (2.0-9.0); NEUTROPHILS # (AUTO) 3.3 K/uL (1.8-7.7); NEUTROPHILS % (AUTO) 45.2 % (40.0-70.0); PLATELET COUNT (AUTO) 225 K/uL (150-450); RED CELL DISTRIBUTION WIDTH 14.3 % (11.5-14.5)
[2019-08-14 08:12] LABS: HEMOGLOBIN A1C 4.8 % (4.5-6.2)
[2019-08-14 08:14] VITALS: BP 145/89
[2019-08-14 08:30] LABS: ALANINE AMINOTRANSFERASE 10 U/L (12-78); ALBUMIN 3.5 g/dL (3.4-5.0); ALKALINE PHOSPHATASE 44 U/L (46-116); ANION GAP 8 mmol/L (8-16); ASPARTATE AMINOTRANSFERASE 13 U/L (15-37); BILIRUBIN,TOTAL 0.2 mg/dL (0.1-1.0); CALCIUM, TOTAL 9.2 mg/dL (8.8-10.5); CARBON DIOXIDE 27 mmol/L (22-29); CHLORIDE 106 mmol/L (98-107); CHOL/HDL RATIO 3.3 (3.9-5.7); CHOLESTEROL 164 mg/dL (131-200); CREATININE 0.58 mg/dL (0.60-1.30); FREE T4 (FREE THYROXINE) 0.96 ng/dL (0.76-1.46); GLOMERULAR FILTR. RATE CALC > 60 mL/min (>60); GLUCOSE,RANDOM 83 mg/dL (70-110); HDL CHOLESTEROL 50 mg/dL (40-60); LDL CHOL (CALC.) 98 mg/dL (0-130); POTASSIUM 3.7 mmol/L (3.5-5.1); SODIUM SERUM 141 mmol/L (136-145); THYROID STIMULATING HORMONE 6.04 uIU/mL (0.36-3.74); TOTAL PROTEIN, SERUM 5.6 g/dL (6.4-8.2); TRIGLYCERIDES 78 mg/dL (15-150)
[2019-08-14 08:42] LABS: UREA NITROGEN, BLOOD 12 mg/dL (7-18)
[2019-08-14] MEDS ORDERED: LORazepam 2 MG/ML VIAL ONE (09:14)
[2019-08-14] MEDS ORDERED: HALOPERIDOL LACTATE 5 MG/ML VIAL ONE (09:14)
[2019-08-14] MEDS ORDERED: DiphenhydrAMINE HCL 50 MG/ML VIAL ONE (09:15)
[2019-08-14] MEDS ORDERED: DiphenhydrAMINE HCL 50 MG/ML VIAL IM ONE (09:45)
[2019-08-14] MEDS ORDERED: HALOPERIDOL LACTATE 5 MG/ML VIAL IM ONE (09:45)
[2019-08-14] MEDS ORDERED: LORazepam 2 MG/ML VIAL IM ONE (09:45)
[2019-08-14] MEDS ORDERED: ACETAMINOPHEN 325 MG TABLET PO PRN (13:15)
[2019-08-14] MEDS ORDERED: HydrOXYzine PAMOATE 50 MG CAPSULE PO PRN (13:15)
[2019-08-14] MEDS ORDERED: MAG HYDROX/AL HYDROX/SIMETH ES 30 ML SUSPENSION UDCUP PO PRN (13:15)
[2019-08-14] MEDS ORDERED: PROMETHAZINE HCL 25 MG TABLET PO PRN (13:15)
[2019-08-14 16:00] VITALS: BP 117/64
[2019-08-14] MEDS: THIAMINE HCL 100 MG TABLET PO SCH (16:11)
[2019-08-14] MEDS: DIVALPROEX SODIUM 500 MG ER TABLET PO SCH (20:14)
[2019-08-14] MEDS ORDERED: QUEtiapine FUMARATE 200 MG TABLET PO SCH (21:00)
[2019-08-15] MEDS: MULTIVITAMINS WITH MINERALS, THERAPEUTIC TABLET PO SCH (09:48)
[2019-08-15] MEDS: FOLIC ACID 1 MG TABLET PO SCH (09:48)
[2019-08-15] MEDS: THIAMINE HCL 100 MG TABLET PO SCH ×2 (09:48→16:50)
[2019-08-15] MEDS: QUEtiapine FUMARATE 100 MG TABLET PO PRN (09:52)
[2019-08-15 18:16] VITALS: BP 139/87
[2019-08-15] MEDS ORDERED: QUEtiapine FUMARATE 200 MG TABLET PO SCH (21:00)
[2019-08-15] MEDS: DIVALPROEX SODIUM 500 MG ER TABLET PO SCH (21:48)
[2019-08-16 06:44] VITALS: BP 101/59
[2019-08-16] MEDS: MULTIVITAMINS WITH MINERALS, THERAPEUTIC TABLET PO SCH (08:51)
[2019-08-16] MEDS: FOLIC ACID 1 MG TABLET PO SCH (08:51)
[2019-08-16] MEDS: THIAMINE HCL 100 MG TABLET PO SCH ×2 (08:51→16:09)
[2019-08-16] MEDS: QUEtiapine FUMARATE 100 MG TABLET PO PRN (08:57)
[2019-08-16 12:49] VITALS: BP 116/78
[2019-08-16 16:00] VITALS: BP 123/80
[2019-08-16] MEDS: LORazepam 1 MG TABLET PO PRN (16:09)
[2019-08-16] MEDS: DIVALPROEX SODIUM 500 MG ER TABLET PO SCH (20:13)
[2019-08-16] MEDS: QUEtiapine FUMARATE 200 MG TABLET PO SCH (20:13)
[2019-08-17 04:39] VITALS: BP 108/77
[2019-08-17] MEDS: MULTIVITAMINS WITH MINERALS, THERAPEUTIC TABLET PO SCH (08:00)
[2019-08-17] MEDS: THIAMINE HCL 100 MG TABLET PO SCH ×2 (08:00→16:05)
[2019-08-17] MEDS: FOLIC ACID 1 MG TABLET PO SCH (08:00)
[2019-08-17 08:08] VITALS: BP 103/65
[2019-08-17] MEDS: QUEtiapine FUMARATE 100 MG TABLET PO PRN (12:25)
[2019-08-17 16:28] VITALS: BP 108/62
[2019-08-17] MEDS: QUEtiapine FUMARATE 200 MG TABLET PO SCH (20:05)
[2019-08-17] MEDS: DIVALPROEX SODIUM 500 MG ER TABLET PO SCH (20:05)
[2019-08-18 08:05] VITALS: BP 108/62
[2019-08-18] MEDS: MULTIVITAMINS WITH MINERALS, THERAPEUTIC TABLET PO SCH (09:08)
[2019-08-18] MEDS: FOLIC ACID 1 MG TABLET PO SCH (09:08)
[2019-08-18] MEDS: THIAMINE HCL 100 MG TABLET PO SCH ×2 (09:31→16:50)
[2019-08-18] MEDS: GuaiFENesin/D-METHORPHAN [SUGAR-FREE] 200-20MG/10 ML SYRUP UDCUP PO PRN ×2 (13:45→18:32)
[2019-08-18 16:05] VITALS: BP 103/64
[2019-08-18] MEDS: DIVALPROEX SODIUM 500 MG ER TABLET PO SCH (20:08)
[2019-08-18] MEDS: ZOLPIDEM TARTRATE 10 MG TABLET PO PRN (20:08)
[2019-08-18] MEDS: QUEtiapine FUMARATE 200 MG TABLET PO SCH (20:08)
[2019-08-19 06:43] VITALS: BP 110/64
[2019-08-19] MEDS: THIAMINE HCL 100 MG TABLET PO SCH ×2 (09:21→16:33)
[2019-08-19] MEDS: FOLIC ACID 1 MG TABLET PO SCH (09:21)
[2019-08-19] MEDS: MULTIVITAMINS WITH MINERALS, THERAPEUTIC TABLET PO SCH (09:21)
[2019-08-19] MEDS: DIVALPROEX SODIUM 500 MG ER TABLET PO SCH ×2 (09:21→20:39)
[2019-08-19] MEDS: LORazepam 1 MG TABLET PO PRN (09:22)
[2019-08-19] MEDS: MAGNESIUM HYDROXIDE SUSPENSION 30 ML UDCUP PO PRN (12:04)
[2019-08-19 16:13] VITALS: BP 100/58
[2019-08-19] MEDS: QUEtiapine FUMARATE 200 MG TABLET PO SCH (20:39)
[2019-08-19] MEDS: ZOLPIDEM TARTRATE 10 MG TABLET PO PRN (20:40)
[2019-08-19] MEDS: GuaiFENesin/D-METHORPHAN [SUGAR-FREE] 200-20MG/10 ML SYRUP UDCUP PO PRN (21:26)
[2019-08-20 04:29] VITALS: BP 106/61
[2019-08-20] MEDS: THIAMINE HCL 100 MG TABLET PO SCH ×2 (09:02→17:45)
[2019-08-20] MEDS: FOLIC ACID 1 MG TABLET PO SCH (09:03)
[2019-08-20] MEDS: MULTIVITAMINS WITH MINERALS, THERAPEUTIC TABLET PO SCH (09:03)
[2019-08-20] MEDS: DIVALPROEX SODIUM 500 MG ER TABLET PO SCH ×2 (09:03→20:21)
[2019-08-20] MEDS: LORazepam 1 MG TABLET PO PRN (09:03)
[2019-08-20] MEDS: GuaiFENesin/D-METHORPHAN [SUGAR-FREE] 200-20MG/10 ML SYRUP UDCUP PO PRN ×2 (12:09→17:44)
[2019-08-20] MEDS ORDERED: PALIPERIDONE 1.5 MG ER TABLET PO PRN (14:15)
[2019-08-20] MEDS ORDERED: PALIPERIDONE PALMITATE 234 MG/1.5 ML SYRINGE IM ONE (16:00)
[2019-08-20 16:14] VITALS: BP 108/68
[2019-08-20] MEDS: QUEtiapine FUMARATE 200 MG TABLET PO SCH (20:21)
[2019-08-21 06:11] VITALS: BP 103/62
[2019-08-21 08:20] VITALS: BP 109/58
[2019-08-21] MEDS: MULTIVITAMINS WITH MINERALS, THERAPEUTIC TABLET PO SCH (08:49)
[2019-08-21] MEDS: FOLIC ACID 1 MG TABLET PO SCH (08:49)
[2019-08-21] MEDS: THIAMINE HCL 100 MG TABLET PO SCH ×2 (08:49→16:19)
[2019-08-21] MEDS: DIVALPROEX SODIUM 500 MG ER TABLET PO SCH ×2 (08:49→20:27)
[2019-08-21] MEDS: LORazepam 1 MG TABLET PO PRN (08:51)
[2019-08-21] MEDS: GuaiFENesin/D-METHORPHAN [SUGAR-FREE] 200-20MG/10 ML SYRUP UDCUP PO PRN ×2 (12:15→18:34)
[2019-08-21] MEDS ORDERED: LOPERAMIDE HCL 2 MG CAPSULE PO PRN (12:30)
[2019-08-21 16:07] VITALS: BP 103/66
[2019-08-21] MEDS: QUEtiapine FUMARATE 200 MG TABLET PO SCH (20:27)
[2019-08-21] MEDS ORDERED: DIVA250T4 PO (21:38)
[2019-08-22 06:07] VITALS: BP 103/64
[2019-08-22] MEDS: DIVALPROEX SODIUM 500 MG ER TABLET PO SCH ×2 (09:26→20:09)
[2019-08-22] MEDS: THIAMINE HCL 100 MG TABLET PO SCH ×2 (09:26→16:16)
[2019-08-22] MEDS: MULTIVITAMINS WITH MINERALS, THERAPEUTIC TABLET PO SCH (09:26)
[2019-08-22] MEDS: FOLIC ACID 1 MG TABLET PO SCH (09:26)
[2019-08-22 09:41] VITALS: BP 107/67
[2019-08-22 16:21] VITALS: BP 105/65
[2019-08-22] MEDS: GuaiFENesin/D-METHORPHAN [SUGAR-FREE] 200-20MG/10 ML SYRUP UDCUP PO PRN (17:36)
[2019-08-22] MEDS: QUEtiapine FUMARATE 200 MG TABLET PO SCH (20:08)
[2019-08-23 02:19] VITALS: BP 112/63
[2019-08-23 08:08] VITALS: BP 100/56
[2019-08-23] MEDS: MULTIVITAMINS WITH MINERALS, THERAPEUTIC TABLET PO SCH (08:21)
[2019-08-23] MEDS: THIAMINE HCL 100 MG TABLET PO SCH ×2 (08:22→16:03)
[2019-08-23] MEDS: FOLIC ACID 1 MG TABLET PO SCH (08:22)
[2019-08-23] MEDS: DIVALPROEX SODIUM 500 MG ER TABLET PO SCH ×2 (08:22→20:10)
[2019-08-23 18:25] VITALS: BP 92/58
[2019-08-23] MEDS: QUEtiapine FUMARATE 200 MG TABLET PO SCH (20:10)
[2019-08-23] MEDS: ZOLPIDEM TARTRATE 10 MG TABLET PO PRN (21:54)
[2019-08-24 06:59] VITALS: BP 110/60
[2019-08-24 08:24] VITALS: BP 110/62
[2019-08-24] MEDS: THIAMINE HCL 100 MG TABLET PO SCH (08:56)
[2019-08-24] MEDS: MULTIVITAMINS WITH MINERALS, THERAPEUTIC TABLET PO SCH (08:56)
[2019-08-24] MEDS: FOLIC ACID 1 MG TABLET PO SCH (08:56)
[2019-08-24] MEDS: DIVALPROEX SODIUM 500 MG ER TABLET PO SCH ×2 (08:56→20:07)
[2019-08-24] MEDS ORDERED: PALIPERIDONE PALMITATE 156 MG/ML SYRINGE IM ONE (09:00)
[2019-08-24 16:13] VITALS: BP 100/73
[2019-08-24] MEDS: QUEtiapine FUMARATE 200 MG TABLET PO SCH (20:06)
[2019-08-25 05:43] VITALS: BP 110/72
[2019-08-25 08:17] VITALS: BP 100/59
[2019-08-25] MEDS: MULTIVITAMINS WITH MINERALS, THERAPEUTIC TABLET PO SCH (08:38)
[2019-08-25] MEDS: DIVALPROEX SODIUM 500 MG ER TABLET PO SCH ×2 (08:40→20:28)
[2019-08-25 10:39] VITALS: BP 108/65
[2019-08-25 16:19] VITALS: BP 100/62
[2019-08-25] MEDS: QUEtiapine FUMARATE 200 MG TABLET PO SCH (20:28)
[2019-08-25] MEDS: MAGNESIUM HYDROXIDE SUSPENSION 30 ML UDCUP PO PRN (20:28)
[2019-08-26 06:47] VITALS: BP 100/63
[2019-08-26 08:16] VITALS: BP 100/64
[2019-08-26] MEDS: MULTIVITAMINS WITH MINERALS, THERAPEUTIC TABLET PO SCH (08:17)
[2019-08-26] MEDS: DIVALPROEX SODIUM 500 MG ER TABLET PO SCH ×2 (08:17→20:58)
[2019-08-26 16:15] VITALS: BP 124/67
[2019-08-26] MEDS: QUEtiapine FUMARATE 200 MG TABLET PO SCH (20:57)
[2019-08-27 06:30] VITALS: BP 103/67
[2019-08-27 08:01] VITALS: BP 117/63
[2019-08-27] MEDS: MULTIVITAMINS WITH MINERALS, THERAPEUTIC TABLET PO SCH (09:07)
[2019-08-27 16:02] VITALS: BP 100/63
[2019-08-27] MEDS: QUEtiapine FUMARATE 200 MG TABLET PO SCH (20:03)
[2019-08-27] MEDS: DIVALPROEX SODIUM 500 MG ER TABLET PO SCH (20:03)
[2019-08-28 07:18] VITALS: BP 105/65
[2019-08-28 08:22] VITALS: BP 101/57
[2019-08-28] MEDS: MULTIVITAMINS WITH MINERALS, THERAPEUTIC TABLET PO SCH (08:32)
[2019-08-28] MEDS: GuaiFENesin/D-METHORPHAN [SUGAR-FREE] 200-20MG/10 ML SYRUP UDCUP PO PRN (12:52)
[2019-08-28 16:05] VITALS: BP 109/76
[2019-08-28] MEDS: QUEtiapine FUMARATE 200 MG TABLET PO SCH (20:19)
[2019-08-28] MEDS: DIVALPROEX SODIUM 500 MG ER TABLET PO SCH (20:19)
[2019-08-28] MEDS: MAGNESIUM HYDROXIDE SUSPENSION 30 ML UDCUP PO PRN (21:40)
[2019-08-29 06:28] VITALS: BP 102/64
[2019-08-29] MEDS: MULTIVITAMINS WITH MINERALS, THERAPEUTIC TABLET PO SCH (08:06)
[2019-08-29 08:11] VITALS: BP 100/60
== END 2019-08-29 11:10 | disposition home or self-care (01) | DRG 885 ==
LOC: B3A 21:02
PROVIDERS: ADMIT Psychiatry & Neurology Psychiatry; ATTEND Psychiatry & Neurology Psychiatry
DX: F20.0 Paranoid schizophrenia (principal); D64.9 Anemia, unspecified; G89.29 Other chronic pain; M54.9 Dorsalgia, unspecified; Z91.14 Patient's other noncompliance with medication regimen; Z63.9 Problem related to primary support group, unspecified; Z65.3 Problems related to other legal circumstances; Z59.9 Problem related to housing and economic circumstances, unspecified
CPT/HCPCS: 83036; 84439; 84443; 87081; J1200; J1630; J2060

== ENCOUNTER 2020-05-01 18:43 | Inpatient (IN) | payer MEDICARE ==
[~2020-05-01 18:43] MED LIST changes: +QUET200T PO; -QUET200T29 PO
[2020-05-01] MEDS ORDERED: PROMETHAZINE HCL 25 MG TABLET PO PRN (20:15)
[2020-05-01] MEDS ORDERED: TUBERCULIN, PURIFIED PROTEIN DERIVATIVE 5 TU/0.1 ML SYRINGE ID ONE (20:15)
[2020-05-01] MEDS ORDERED: HydrOXYzine PAMOATE 50 MG CAPSULE PO PRN (20:15)
[2020-05-01] MEDS ORDERED: MAGNESIUM HYDROXIDE SUSPENSION 30 ML UDCUP PO PRN (20:15)
[2020-05-01] MEDS ORDERED: GuaiFENesin/D-METHORPHAN [SUGAR-FREE] 200-20MG/10 ML SYRUP UDCUP PO PRN (20:15)
[2020-05-01] MEDS ORDERED: MAG HYDROX/AL HYDROX/SIMETH ES 30 ML SUSPENSION UDCUP PO PRN (20:15)
[2020-05-01] MEDS ORDERED: ZOLPIDEM TARTRATE 10 MG TABLET PO PRN (20:15)
[2020-05-01] MEDS ORDERED: LOPERAMIDE HCL 2 MG CAPSULE PO PRN (20:15)
[2020-05-01] MEDS: QUEtiapine FUMARATE 200 MG TABLET PO SCH (21:00)
[2020-05-01] MEDS: DIVALPROEX SODIUM 500 MG ER TABLET PO SCH (21:00)
[2020-05-02] MEDS: QUEtiapine FUMARATE 100 MG TABLET PO PRN (04:10)
[2020-05-02] MEDS: LORazepam 2 MG TABLET PO PRN (04:10)
[2020-05-02] MEDS: MULTIVITAMINS WITH MINERALS, THERAPEUTIC TABLET PO SCH (08:54)
[2020-05-02] MEDS: FOLIC ACID 1 MG TABLET PO SCH (08:54)
[2020-05-02] MEDS: THIAMINE 100 MG TABLET PO SCH ×2 (08:54→17:14)
[2020-05-02 16:26] VITALS: BP 119/80
[2020-05-02] MEDS ORDERED: DiphenhydrAMINE HCL 50 MG/ML VIAL IM ONE (20:00)
[2020-05-02] MEDS ORDERED: LORazepam 2 MG/ML VIAL ONE (20:00)
[2020-05-02] MEDS ORDERED: HALOPERIDOL LACTATE 5 MG/ML VIAL ONE (20:00)
[2020-05-02] MEDS ORDERED: DiphenhydrAMINE HCL 50 MG/ML VIAL ONE (20:00)
[2020-05-02] MEDS ORDERED: LORazepam 2 MG/ML VIAL IM ONE (20:00)
[2020-05-02] MEDS ORDERED: HALOPERIDOL LACTATE 5 MG/ML VIAL IM ONE (20:00)
[2020-05-02] MEDS: QUEtiapine FUMARATE 200 MG TABLET PO SCH (21:00)
[2020-05-02] MEDS: DIVALPROEX SODIUM 500 MG ER TABLET PO SCH (21:00)
[2020-05-03 08:34] VITALS: BP 119/74
[2020-05-03] MEDS: THIAMINE 100 MG TABLET PO SCH ×2 (08:51→16:32)
[2020-05-03] MEDS: MULTIVITAMINS WITH MINERALS, THERAPEUTIC TABLET PO SCH (08:51)
[2020-05-03] MEDS: FOLIC ACID 1 MG TABLET PO SCH (08:51)
[2020-05-03] MEDS: LORazepam 2 MG TABLET PO PRN (16:32)
[2020-05-03 16:37] VITALS: BP 112/68
[2020-05-03] MEDS: BACITRACIN 28.4 GM OINTMENT TP SCH (20:02)
[2020-05-03] MEDS: DIVALPROEX SODIUM 500 MG ER TABLET PO SCH (20:03)
[2020-05-03] MEDS: QUEtiapine FUMARATE 200 MG TABLET PO SCH (20:03)
[2020-05-04 02:42] VITALS: BP 116/75
[2020-05-04 08:13] LABS: BASOPHILS % (AUTO) 0.7 % (0.0-2.0); EOSINOPHILS % (AUTO) 2.1 % (1.0-6.0); HEMATOCRIT 38.6 % (36-46); HEMOGLOBIN 12.4 g/dL (12.0-16.0); LYMPHOCYTES # (AUTO) 2.4 K/uL (1.0-4.8); LYMPHOCYTES % (AUTO) 40.7 % (22.0-44.0); MEAN CORPUSCULAR HEMOGLOBIN 29.4 pg (26.0-34.0); MEAN CORPUSCULAR HGB CONC 32.2 G/dL (31.0-37.0); MEAN CORPUSCULAR VOLUME 91 fL (80-100); MONOCYTES # (AUTO) 0.6 K/uL (0.1-1.0); MONOCYTES % (AUTO) 10.1 % (2.0-9.0); NEUTROPHILS # (AUTO) 2.8 K/uL (1.8-7.7); NEUTROPHILS % (AUTO) 46.4 % (40.0-70.0); PLATELET COUNT (AUTO) 285 K/uL (150-450); RED BLOOD CELL COUNT(AUTO) 4.23 MIL/uL (4.00-5.20); RED CELL DISTRIBUTION WIDTH 13.4 % (11.5-14.5)
[2020-05-04 08:31] LABS: HEMOGLOBIN A1C 5.7 % (3.8-5.6)
[2020-05-04 09:05] LABS: ALANINE AMINOTRANSFERASE 16 U/L (12-78); ALBUMIN 3.2 g/dL (3.4-5.0); ALKALINE PHOSPHATASE 53 U/L (46-116); ANION GAP 7 mmol/L (8-16); ASPARTATE AMINOTRANSFERASE 12 U/L (15-37); BILIRUBIN,TOTAL 0.4 mg/dL (0.1-1.0); CALCIUM, TOTAL 8.7 mg/dL (8.8-10.5); CARBON DIOXIDE 28 mmol/L (22-29); CHLORIDE 105 mmol/L (98-107); CHOL/HDL RATIO 3.5 (3.9-5.7); CHOLESTEROL 157 mg/dL (131-200); CREATININE 0.67 mg/dL (0.60-1.30); FREE T4 (FREE THYROXINE) 1.18 ng/dL (0.76-1.46); GLOMERULAR FILTR. RATE CALC > 60 mL/min (>60); GLUCOSE,RANDOM 87 mg/dL (70-110); HDL CHOLESTEROL 45 mg/dL (40-60); LDL CHOL (CALC.) 97 mg/dL (0-130); POTASSIUM 4.3 mmol/L (3.5-5.1); SODIUM SERUM 140 mmol/L (136-145); THYROID STIMULATING HORMONE 2.79 uIU/mL (0.36-3.74); TOTAL PROTEIN, SERUM 5.8 g/dL (6.4-8.2); TRIGLYCERIDES 74 mg/dL (15-150); UREA NITROGEN, BLOOD 10 mg/dL (7-18); VALPROIC ACID 47 mcg/mL (50-100)
[2020-05-04] MEDS: THIAMINE 100 MG TABLET PO SCH ×2 (09:09→16:18)
[2020-05-04] MEDS: FOLIC ACID 1 MG TABLET PO SCH (09:09)
[2020-05-04] MEDS: MULTIVITAMINS WITH MINERALS, THERAPEUTIC TABLET PO SCH (09:09)
[2020-05-04] MEDS: BACITRACIN 28.4 GM OINTMENT TP SCH (09:09)
[2020-05-04] MEDS: LORazepam 2 MG TABLET PO PRN (13:10)
[2020-05-04] MEDS: QUEtiapine FUMARATE 100 MG TABLET PO PRN (16:18)
[2020-05-04 16:21] VITALS: BP 100/65
[2020-05-04] MEDS: DIVALPROEX SODIUM 500 MG ER TABLET PO SCH (20:52)
[2020-05-04] MEDS ORDERED: QUEtiapine FUMARATE 200 MG TABLET PO SCH (21:00)
[2020-05-05 02:12] VITALS: BP 112/67
[2020-05-05] MEDS: THIAMINE 100 MG TABLET PO SCH ×2 (09:02→16:38)
[2020-05-05] MEDS: MULTIVITAMINS WITH MINERALS, THERAPEUTIC TABLET PO SCH (09:02)
[2020-05-05] MEDS: BACITRACIN 28.4 GM OINTMENT TP SCH (09:03)
[2020-05-05] MEDS: FOLIC ACID 1 MG TABLET PO SCH (09:03)
[2020-05-05 16:45] VITALS: BP 104/77
[2020-05-05] MEDS: DIVALPROEX SODIUM 500 MG ER TABLET PO SCH (20:35)
[2020-05-05] MEDS ORDERED: QUEtiapine FUMARATE 300 MG TABLET PO SCH (21:00)
[2020-05-06 05:56] VITALS: BP 102/58
[2020-05-06 08:34] VITALS: BP 100/61
[2020-05-06] MEDS: MULTIVITAMINS WITH MINERALS, THERAPEUTIC TABLET PO SCH (08:59)
[2020-05-06] MEDS: BACITRACIN 28.4 GM OINTMENT TP SCH (08:59)
[2020-05-06] MEDS: THIAMINE 100 MG TABLET PO SCH ×2 (08:59→17:00)
[2020-05-06] MEDS: FOLIC ACID 1 MG TABLET PO SCH (08:59)
[2020-05-06 16:22] VITALS: BP 108/61
[2020-05-06] MEDS: LORazepam 2 MG TABLET PO PRN (19:27)
[2020-05-06] MEDS: DIVALPROEX SODIUM 500 MG ER TABLET PO SCH (21:26)
[2020-05-06] MEDS: QUEtiapine FUMARATE 200 MG TABLET PO SCH (21:26)
[2020-05-07 06:18] VITALS: BP 106/63
[2020-05-07 08:34] VITALS: BP 98/60
[2020-05-07] MEDS: FOLIC ACID 1 MG TABLET PO SCH (09:20)
[2020-05-07] MEDS: THIAMINE 100 MG TABLET PO SCH ×2 (09:20→17:59)
[2020-05-07] MEDS: MULTIVITAMINS WITH MINERALS, THERAPEUTIC TABLET PO SCH (09:21)
[2020-05-07] MEDS: BACITRACIN 28.4 GM OINTMENT TP SCH (09:21)
[2020-05-07 16:21] VITALS: BP 120/54
[2020-05-07] MEDS: DIVALPROEX SODIUM 500 MG ER TABLET PO SCH (21:11)
[2020-05-07] MEDS: QUEtiapine FUMARATE 200 MG TABLET PO SCH (21:11)
[2020-05-08 05:47] VITALS: BP 99/61
[2020-05-08] MEDS: FOLIC ACID 1 MG TABLET PO SCH (09:20)
[2020-05-08] MEDS: MULTIVITAMINS WITH MINERALS, THERAPEUTIC TABLET PO SCH (09:21)
[2020-05-08] MEDS: THIAMINE 100 MG TABLET PO SCH ×2 (09:21→17:53)
[2020-05-08] MEDS: BACITRACIN 28.4 GM OINTMENT TP SCH (09:21)
[2020-05-08 12:42] VITALS: BP 77/49
[2020-05-08 16:14] VITALS: BP 113/65
[2020-05-08] MEDS: QUEtiapine FUMARATE 200 MG TABLET PO SCH (21:36)
[2020-05-08] MEDS: DIVALPROEX SODIUM 500 MG ER TABLET PO SCH (21:36)
[2020-05-09 08:50] VITALS: BP 90/60
[2020-05-09] MEDS: THIAMINE 100 MG TABLET PO SCH ×2 (09:49→16:47)
[2020-05-09] MEDS: BACITRACIN 28.4 GM OINTMENT TP SCH (09:49)
[2020-05-09] MEDS: FOLIC ACID 1 MG TABLET PO SCH (09:49)
[2020-05-09] MEDS: MULTIVITAMINS WITH MINERALS, THERAPEUTIC TABLET PO SCH (09:49)
[2020-05-09] MEDS ORDERED: DiphenhydrAMINE HCL 50 MG/ML VIAL ONE (16:03)
[2020-05-09] MEDS ORDERED: LORazepam 2 MG/ML VIAL ONE (16:03)
[2020-05-09] MEDS ORDERED: HALOPERIDOL LACTATE 5 MG/ML VIAL IM ONE (16:15)
[2020-05-09] MEDS ORDERED: LORazepam 2 MG/ML VIAL IM ONE (16:15)
[2020-05-09] MEDS ORDERED: DiphenhydrAMINE HCL 50 MG/ML VIAL IM ONE (16:15)
[2020-05-09 16:31] VITALS: BP_SYST 100; BP_SYST 92; BP_DIAS 61; BP_DIAS 70
[2020-05-09] MEDS: DIVALPROEX SODIUM 500 MG ER TABLET PO SCH (20:34)
[2020-05-09] MEDS: QUEtiapine FUMARATE 200 MG TABLET PO SCH (20:34)
[2020-05-10 06:07] VITALS: BP 109/68
[2020-05-10] MEDS: MULTIVITAMINS WITH MINERALS, THERAPEUTIC TABLET PO SCH (08:55)
[2020-05-10] MEDS: FOLIC ACID 1 MG TABLET PO SCH (08:55)
[2020-05-10] MEDS: BACITRACIN 28.4 GM OINTMENT TP SCH (09:44)
[2020-05-10] MEDS: THIAMINE 100 MG TABLET PO SCH ×2 (09:44→17:09)
[2020-05-10 16:00] VITALS: BP 112/56
[2020-05-10] MEDS: QUEtiapine FUMARATE 200 MG TABLET PO SCH (21:23)
[2020-05-10] MEDS: DIVALPROEX SODIUM 500 MG ER TABLET PO SCH (21:23)
[2020-05-11 05:51] VITALS: BP 107/57
[2020-05-11] MEDS: ACETAMINOPHEN 325 MG TABLET PO PRN ×2 (06:16→15:56)
[2020-05-11 08:14] VITALS: BP 102/64
[2020-05-11] MEDS: MULTIVITAMINS WITH MINERALS, THERAPEUTIC TABLET PO SCH (08:20)
[2020-05-11] MEDS: FOLIC ACID 1 MG TABLET PO SCH (08:20)
[2020-05-11] MEDS: THIAMINE 100 MG TABLET PO SCH (08:20)
[2020-05-11] MEDS: BACITRACIN 28.4 GM OINTMENT TP SCH (08:21)
[2020-05-11 16:50] VITALS: BP 121/61
[2020-05-11] MEDS: DIVALPROEX SODIUM 500 MG ER TABLET PO SCH (21:09)
[2020-05-11] MEDS: QUEtiapine FUMARATE 200 MG TABLET PO SCH (21:10)
[2020-05-12 06:24] VITALS: BP 96/64
[2020-05-12] MEDS: BACITRACIN 28.4 GM OINTMENT TP SCH (07:59)
[2020-05-12] MEDS: MULTIVITAMINS WITH MINERALS, THERAPEUTIC TABLET PO SCH (07:59)
[2020-05-12 08:24] VITALS: BP 112/69
[2020-05-12 16:47] VITALS: BP 101/64
[2020-05-12] MEDS: QUEtiapine FUMARATE 200 MG TABLET PO SCH (21:20)
[2020-05-12] MEDS: DIVALPROEX SODIUM 500 MG ER TABLET PO SCH (21:21)
[2020-05-13 04:13] VITALS: BP 112/63
[2020-05-13] MEDS: BACITRACIN 28.4 GM OINTMENT TP SCH (08:07)
[2020-05-13] MEDS: MULTIVITAMINS WITH MINERALS, THERAPEUTIC TABLET PO SCH (08:07)
[2020-05-13 08:31] VITALS: BP 116/71
[2020-05-13 16:23] VITALS: BP 120/90
[2020-05-13] MEDS: DIVALPROEX SODIUM 500 MG ER TABLET PO SCH (21:09)
[2020-05-13] MEDS: QUEtiapine FUMARATE 200 MG TABLET PO SCH (21:10)
[2020-05-14] MEDS: MULTIVITAMINS WITH MINERALS, THERAPEUTIC TABLET PO SCH (08:40)
[2020-05-14] MEDS: BACITRACIN 28.4 GM OINTMENT TP SCH (09:06)
[2020-05-14 09:48] VITALS: BP 90/63
[2020-05-14] MEDS: ACETAMINOPHEN 325 MG TABLET PO PRN (11:05)
[2020-05-14] MEDS ORDERED: DIVA500T52 PO (18:59)
[2020-05-14] MEDS ORDERED: QUET200T29 PO (18:59)
[2020-05-14 19:39] VITALS: BP 131/54
[2020-05-14] MEDS: QUEtiapine FUMARATE 200 MG TABLET PO SCH (21:04)
[2020-05-14] MEDS: DIVALPROEX SODIUM 500 MG ER TABLET PO SCH (21:04)
[2020-05-15 04:13] VITALS: BP 100/60
[2020-05-15] MEDS: MULTIVITAMINS WITH MINERALS, THERAPEUTIC TABLET PO SCH (08:14)
[2020-05-15] MEDS: BACITRACIN 28.4 GM OINTMENT TP SCH (08:15)
[2020-05-15 08:32] VITALS: BP 106/62
== END 2020-05-15 13:15 | disposition home or self-care (01) | DRG 885 ==
LOC: UNDOADMIN 21:38 → B3A 21:38 → UNDODISIN 05-15 13:15
PROVIDERS: ADMIT Psychiatry & Neurology Psychiatry; ATTEND Psychiatry & Neurology Psychiatry
DX: F20.0 Paranoid schizophrenia (principal); F17.210 Nicotine dependence, cigarettes, uncomplicated; D64.9 Anemia, unspecified; F39 Unspecified mood [affective] disorder; Z59.0 Homelessness; Z79.899 Other long term (current) drug therapy
CPT/HCPCS: 83036; 84439; 84443; 86592; J1200; J1630; J2060

== ENCOUNTER 2020-09-28 11:10 | Inpatient (IN) | payer MEDICARE ==
[~2020-09-28] VITALS: Ht 157.5 cm; Wt 45.4 kg
[2020-09-28] MEDS ORDERED: LORA-1001 PO (15:43)
[2020-09-28] MEDS ORDERED: HALOPERIDOL 5 MG TABLET PO PRN (18:30)
[2020-09-28] MEDS ORDERED: LORazepam 2 MG TABLET PO PRN (18:30)
[2020-09-28] MEDS ORDERED: ZOLPIDEM TARTRATE 10 MG TABLET PO PRN (18:30)
[2020-09-28] MEDS ORDERED: PNEUMOCOCCAL VACCINE POLYVALENT 0.5 ML VIAL [PPSV23] IM ONE (18:45)
[2020-09-28] MEDS ORDERED: INFLUENZA VIRUS VACCINE QVS 2020-21 (6MO+)/PF 60 MCG/0.5 ML SYRINGE IM ONE (18:45)
[2020-09-28 19:51] VITALS: BP 110/69
[2020-09-29] MEDS ORDERED: PETROLATUM,WHITE 28 GM JELLY TP PRN (08:00)
[2020-09-29] MEDS ORDERED: ALBUTEROL SULFATE HFA 90 MCG/PUFF 8 GM INHALER IH PRN (08:00)
[2020-09-29] MEDS ORDERED: MAG HYDROX/AL HYDROX/SIMETH ES 30 ML SUSPENSION UDCUP PO PRN (08:00)
[2020-09-29] MEDS ORDERED: GuaiFENesin/D-METHORPHAN [SUGAR-FREE] 200-20MG/10 ML SYRUP UDCUP PO PRN (08:00)
[2020-09-29] MEDS ORDERED: MAGNESIUM HYDROXIDE SUSPENSION 30 ML UDCUP PO PRN (08:00)
[2020-09-29] MEDS ORDERED: LOPERAMIDE HCL 2 MG CAPSULE PO PRN (08:00)
[2020-09-29] MEDS ORDERED: DOCUSATE SODIUM 100 MG CAPSULE PO PRN (08:00)
[2020-09-29] MEDS ORDERED: CloNIDine HCL 0.1 MG TABLET PO PRN (08:00)
[2020-09-29] MEDS ORDERED: ACETAMINOPHEN 325 MG TABLET PO PRN (08:00)
[2020-09-29] MEDS ORDERED: NICOTINE 14 MG/24 HOUR PATCH TD PRN (08:00)
[2020-09-29] MEDS ORDERED: ONDANSETRON HCL 4 MG TABLET PO PRN (08:00)
[2020-09-29] MEDS ORDERED: IBUPROFEN 400 MG TABLET PO PRN (08:00)
[2020-09-29 08:04] VITALS: BP 135/86
[2020-09-29 16:12] VITALS: BP 128/81
[2020-09-29] MEDS: DIVALPROEX SODIUM 500 MG ER TABLET PO SCH (20:53)
[2020-09-29] MEDS: QUEtiapine FUMARATE 200 MG TABLET PO SCH (20:53)
[2020-09-30 00:17] VITALS: BP 100/66
[2020-09-30 08:31] VITALS: BP 149/84
[2020-09-30 16:37] VITALS: BP 138/76
[2020-09-30] MEDS: DIVALPROEX SODIUM 500 MG ER TABLET PO SCH (20:53)
[2020-09-30] MEDS: QUEtiapine FUMARATE 200 MG TABLET PO SCH (20:53)
[2020-10-01 05:38] VITALS: BP 132/81
[2020-10-01 08:18] VITALS: BP 106/69
[2020-10-01 16:17] VITALS: BP 100/72
[2020-10-01] MEDS: DIVALPROEX SODIUM 500 MG ER TABLET PO SCH (20:39)
[2020-10-01] MEDS: QUEtiapine FUMARATE 200 MG TABLET PO SCH (20:39)
[2020-10-02 08:20] VITALS: BP 109/69
[2020-10-02] MEDS ORDERED: QUET200T PO (11:45)
[2020-10-02] MEDS ORDERED: DIVA-80 PO (11:45)
== END 2020-10-02 13:50 | disposition home or self-care (01) | DRG 885 ==
LOC: B2X 18:32
DX: F20.0 Paranoid schizophrenia (principal); J44.1 Chronic obstructive pulmonary disease with (acute) exacerbation; E87.0 Hyperosmolality and hypernatremia; E03.9 Hypothyroidism, unspecified; R73.03 Prediabetes; J44.9 Chronic obstructive pulmonary disease, unspecified; R00.0 Tachycardia, unspecified; Z28.21 Immunization not carried out because of patient refusal; Z79.899 Other long term (current) drug therapy; Z03.818 Encounter for observation for suspected exposure to other biological agents ruled out
CPT/HCPCS: 87081; Z7610